=== PATIENT | female | born 1970 | race Caucasian/White ===

== ENCOUNTER 2021-11-14 08:00 | Outpatient (CLI) | payer MEDICARE, MEDICAID | END 2021-11-14 23:59 | LOC: LAB 08:00 | PROVIDERS: ATTEND Physician Assistant Medical | DX: N30.00 Acute cystitis without hematuria (principal) | CPT/HCPCS: 87086; 87181 ==

== ENCOUNTER 2022-03-15 12:55 | Outpatient (CLI) | payer MEDICARE, MEDICAID ==
--- NOTE | 2022-03-15 15:34 | XRAY Report ---
PROCEDURE: Knee 3 View RT INDICATIONS: PAIN IN RIGHT KNEE TECHNIQUE: 3 views of the right knee(s) were acquired. COMPARISON: None. FINDINGS: Bones: No fractures or dislocations. Mild degenerative change in the medial and patellar compartment s. No suspicious bony lesions. Soft tissues: No significant joint effusion. No suspicious soft tissue calcifications. IMPRESSION: Mild right knee DJD. Reviewed by: David Alonso MD on 03/15/2022 3:33 PM PDT Approved by: David Alonso MD on 03/15/2022 3:33 PM PDT Station ID: [id number]
== END 2022-03-15 12:56 | disposition home or self-care (01) ==
LOC: DI.N 12:55
PROVIDERS: ATTEND Physician Assistant
DX: M17.11 Unilateral primary osteoarthritis, right knee (principal)

== ENCOUNTER 2023-01-07 16:22 | Emergency (ER) | payer MEDICARE, MEDICAID ==
[2023-01-07 16:35] VITALS: BP 143/102
[2023-01-07 16:54] LABS: BASOPHILS % (AUTO) 0.4 %; EOSINOPHILS % (AUTO) 0.2 %; HCT - HEMATOCRIT 49.9 % (37.0-47.0); HGB - HEMOGLOBIN 15.5 g/dL (12.0-16.0); LYMPHOCYTES # (AUTO) 1.2 10^3/uL (1.5-3.5); LYMPHOCYTES % (AUTO) 10.5 %; MEAN CORPUSCULAR HGB CONC 31.1 g/dL (32.0-36.0); MEAN CORPUSCULAR VOLUME 96.5 fL (81.0-99.0); MEAN PLATELET VOLUME 9.1 fL (7.9-10.8); MONOCYTES # (AUTO) 0.5 10^3/uL (0.0-1.0); MONOCYTES % (AUTO) 4.5 %; NEUTROPHILS # (AUTO) 9.2 10^3/uL (1.5-6.6); NEUTROPHILS % (AUTO) 83.2 %; PLT - PLATELET COUNT 231 10^3/uL (130-450); RED BLOOD COUNT 5.17 10^6/uL (4.20-5.40); RED CELL DISTRIBUTION WIDTH 14.2 % (12.0-15.0)
[2023-01-07 17:05] LABS: ALBUMIN 4.6 g/dL (3.2-5.5); ALBUMIN/GLOBULIN RATIO 1.5 (1.0-2.2); BILIRUBIN,TOTAL 0.6 mg/dL (0.2-1.0); CALCIUM 9.5 mg/dL (8.5-10.3); CREATININE 1.2 mg/dL (0.4-1.0); POTASSIUM 4.5 mmol/L (3.5-5.0); TOTAL PROTEIN 7.7 g/dL (6.7-8.2)
[2023-01-07 17:08] LABS: BILIRUBIN,URINE NEGATIVE (NEGATIVE); GLUCOSE, URINE (UA) NEGATIVE (NEGATIVE); KETONES,URINE (UA) NEGATIVE (NEGATIVE); LEUKOCYTE ESTERASE, URINE TRACE (NEGATIVE); NITRITE,URINE NEGATIVE (NEGATIVE); OCCULT BLOOD,URINE NEGATIVE (NEGATIVE); PROTEIN,URINE TRACE mg/dL (NEGATIVE); UROBILINOGEN,URINE 0.2 (NORMAL) E.U./dL (NORMAL)
[2023-01-07 17:09] LABS: CLARITY,URINE HAZY (CLEAR)
--- OUTSIDE RECORDS SUMMARY | 2023-01-07 17:11 | EXTERNAL MEDICAL SUMMARY RPT | Continuity of Care Document ---
:1970 Author Organization [facility] Address [address] [place] [address] Phone Care Team Providers Name Role Phone Unavailable Unavailable Unavailable Panda, Skyler Unavailable Unavailable Jack Chávezp,Heating Technician, Byron Unavailable Unavailable Allergies and Intolerances date description facility type (no date) No Known Drug Allergies [facility] ([facility]) Encounters No information. Functional Status No information. Immunizations No information. Medications date description facility 2022-12-23 00:00 buspirone All 2022-12-24 00:00 buspirone All 2022-12-23 00:00 clonidine hcl All 2022-12-24 00:00 clonidine hcl All 2022-12-23 00:00 atenolol All 2022-12-24 00:00 atenolol All 2022-12-23 00:00 nitrofurantoin monohyd/m-cryst All 2022-12-24 00:00 nitrofurantoin monohyd/m-cryst All 2022-12-23 00:00 mycophenolate sodium All 2022-12-24 00:00 mycophenolate sodium All 2022-12-22 00:00 oxycodone-acetaminophen All 2022-12-23 00:00 oxycodone-acetaminophen All 2022-12-24 00:00 oxycodone-acetaminophen All 2022-12-22 00:00 oxycodone All 2022-12-23 00:00 prednisone All 2022-12-24 00:00 prednisone All 2022-12-23 00:00 tacrolimus All 2022-12-24 00:00 tacrolimus All 2022-12-22 00:00 oxycodone-acetaminophen All 2022-12-23 00:00 oxycodone-acetaminophen All 2022-12-24 00:00 oxycodone-acetaminophen All 2022-12-24 00:00 [facility] 2022-12-22 00:00 oxycodone All 2022-12-23 00:00 nitrofurantoin macrocrystal All 2022-12-24 00:00 nitrofurantoin macrocrystal All 2022-12-23 00:00 buprenorphine All 2022-12-24 00:00 buprenorphine All 2022-12-24 00:00 Nitrofurantoin Monohyd/M-Cryst [facility] 2022-12-23 00:00 nitrofurantoin monohyd/m-cryst All 2022-12-24 00:00 nitrofurantoin monohyd/m-cryst All 2022-12-23 00:00 nitrofurantoin macrocrystal All 2022-12-24 00:00 nitrofurantoin macrocrystal All 2022-12-23 00:00 nitrofurantoin macrocrystal All 2022-12-24 00:00 nitrofurantoin macrocrystal All 2022-12-23 00:00 nitrofurantoin monohyd/m-cryst All 2022-12-24 00:00 nitrofurantoin monohyd/m-cryst All 2022-12-23 00:00 prednisone All 2022-12-24 00:00 prednisone All 2022-12-24 00:[address] [facility] 2022-12-23 00:00 amlodipine All 2022-12-24 00:00 amlodipine All 2022-12-24 00:[address] [facility] 2022-12-23 00:00 atenolol All 2022-12-24 00:00 atenolol All 2022-12-24 00:[address] [facility] 2022-12-23 00:00 omeprazole All 2022-12-24 00:00 omeprazole All 2022-12-24 00:[address] [facility] 2022-12-23 00:00 montelukast All 2022-12-24 00:00 montelukast All 2022-12-23 00:00 atenolol All 2022-12-24 00:00 atenolol All 2022-12-23 00:00 prednisone All 2022-12-24 00:00 prednisone All 2022-12-23 00:00 amlodipine All 2022-12-24 00:00 amlodipine All 2022-12-23 00:00 buspirone All 2022-12-24 00:00 buspirone All 2022-12-23 00:00 nitrofurantoin monohyd/m-cryst All 2022-12-24 00:00 nitrofurantoin monohyd/m-cryst All 2022-12-22 00:00 oxycodone All 2022-12-24 00:[address] [facility] 2022-12-23 00:00 citalopram All 2022-12-24 00:00 citalopram All 2022-12-24 00:[address] [facility] 2022-12-23 00:00 gabapentin All 2022-12-24 00:00 gabapentin All 2022-12-24 00:[address] [facility] 2022-12-23 00:00 prednisone All 2022-12-24 00:00 prednisone All 2022-12-24 00:[address] [facility] 2022-12-23 00:00 tacrolimus All 2022-12-24 00:00 tacrolimus All 2022-12-23 00:00 atenolol All 2022-12-24 00:00 atenolol All 2022-12-23 00:00 amlodipine All 2022-12-24 00:00 amlodipine All 2022-12-23 00:00 clonidine hcl All 2022-12-24 00:00 clonidine hcl All 2022-12-23 00:00 buprenorphine All 2022-12-24 00:00 buprenorphine All 2022-12-23 00:00 montelukast All 2022-12-24 00:00 montelukast All 2022-12-23 00:00 gabapentin All 2022-12-24 00:00 gabapentin All 2022-12-23 00:00 clonidine hcl All 2022-12-24 00:00 clonidine hcl All 2022-12-23 00:00 nitrofurantoin macrocrystal All 2022-12-24 00:00 nitrofurantoin macrocrystal All 2022-12-24 00:[address] [facility] 2022-12-23 00:00 mycophenolate sodium All 2022-12-24 00:00 mycophenolate sodium All 2022-12-23 00:00 omeprazole All 2022-12-24 00:00 omeprazole All 2022-12-23 00:00 montelukast All 2022-12-24 00:00 montelukast All 2022-12-23 00:00 citalopram All 2022-12-24 00:00 citalopram All 2022-12-22 00:00 cyclobenzaprine All 2022-12-23 00:00 citalopram All 2022-12-24 00:00 citalopram All 2022-12-23 00:00 buspirone All 2022-12-24 00:00 buspirone All 2022-12-23 00:00 citalopram All 2022-12-24 00:00 citalopram All 2022-12-23 00:00 tacrolimus All 2022-12-24 00:00 tacrolimus All 2022-12-22 00:00 cyclobenzaprine All 2022-12-23 00:00 amlodipine All 2022-12-24 00:00 amlodipine All 2022-12-23 00:00 gabapentin All 2022-12-24 00:00 gabapentin All 2022-12-23 00:00 omeprazole All 2022-12-24 00:00 omeprazole All 2022-12-23 00:00 omeprazole All 2022-12-24 00:00 omeprazole All 2022-12-22 00:00 oxycodone All 2022-12-23 00:00 buprenorphine All 2022-12-24 00:00 buprenorphine All 2022-12-23 00:00 montelukast All 2022-12-24 00:00 montelukast All 2022-12-22 00:00 oxycodone-acetaminophen All 2022-12-23 00:00 oxycodone-acetaminophen All 2022-12-24 00:00 oxycodone-acetaminophen All 2022-12-23 00:00 gabapentin All 2022-12-24 00:00 gabapentin All 2022-12-22 00:00 oxycodone-acetaminophen All 2022-12-23 00:00 oxycodone-acetaminophen All 2022-12-24 00:00 oxycodone-acetaminophen All 2022-12-22 00:00 cyclobenzaprine All 2022-12-24 00:00 [facility] 2022-12-22 00:00 cyclobenzaprine All 2022-12-23 00:00 mycophenolate sodium All 2022-12-24 00:00 mycophenolate sodium All 2022-12-23 00:00 buspirone All 2022-12-24 00:00 buspirone All 2022-12-23 00:00 clonidine hcl All 2022-12-24 00:00 clonidine hcl All 2022-12-24 00:[address] [facility] 2022-12-23 00:00 buprenorphine All 2022-12-24 00:00 buprenorphine All 2022-12-23 00:00 mycophenolate sodium All 2022-12-24 00:00 mycophenolate sodium All 2022-12-23 00:00 tacrolimus All 2022-12-24 00:00 tacrolimus All Problems date description facility 2022-12-22 00:00 Thoracic back pain All 2022-12-22 00:00 Backache, unspecified All 2022-12-22 00:00 Dorsalgia, unspecified All 2022-12-24 00:[address] [facility] Procedures date description facility 2022-12-22 00:00 Visit Code Hold All Results/Labs test date author facility value unit interpret ation Result panel 1 (unknown) (no (unknown) (unknown) (no value) (units (unk nown) date) unknown) (unknown) (no (unknown) (unknown) 0.5 mg PO BID (units ( unknown) date) unknown) (unknown) (no (unknown) (unknown) 12/24/22 12:52 (units (unknown) date) unknown) (unknown) (no (unknown) (unknown) 12/24/22 (units (unkno wn) date) unknown) (unknown) (no (unknown) (unknown) 1 patch topical (units (unknown) date) QWEEK unknown) (unknown) (no (unknown) (unknown) 10 mg PO DAILY (units (unknown) date) unknown) (unknown) (no (unknown) (unknown) 10 mg PO TID PRN (units (unknown) date) (Reason: muscle unknown) spasms) (unknown) (no (unknown) (unknown) 100 mg PO DAILY (units (unknown) date) unknown) (unknown) (no (unknown) (unknown) 11:26 (units (unkno wn) date) unknown) (unknown) (no (unknown) (unknown) [id number] (units (unkno wn) date) unknown) (unknown) (no (unknown) (unknown) 25 mg PO BID (units (u nknown) date) unknown) (unknown) (no (unknown) (unknown) 300 mg PO BID (units ( unknown) date) unknown) (unknown) (no (unknown) (unknown) 40 mg PO DAILY (units (unknown) date) unknown) (unknown) (no (unknown) (unknown) 5 PM (units (unkno wn) date) unknown) (unknown) (no (unknown) (unknown) 5 mg PO DAILY (units ( unknown) date) unknown) (unknown) (no (unknown) (unknown) 5 mg PO Q6H PRN (units (unknown) date) (Reason: Pain unknown) (Scale Score 7-10)) (unknown) (no (unknown) (unknown) 52-year-old female (units (unknown) date) with past medical unknown) history kidney transplant presents to the (unknown) (no (unknown) (unknown) 7-10) (units (unkno wn) date) unknown) (unknown) (no (unknown) (unknown) Abdomen is benign. (units (unknown) date) Patient given unknown) Percocet for pain. Likely discharge home with (unknown) (no (unknown) (unknown) Abdomen is soft, (units (unknown) date) nondistended, unknown) nontender to palpation. There is no CVA (unknown) (no (unknown) (unknown) Age/Sex: 52 / F (units (unknown) date) unknown) (unknown) (no (unknown) (unknown) Allergic/Immunolog (units (unknown) date) ic unknown) (unknown) (no (unknown) (unknown) Allergic/Immunolog (units (unknown) date) ic: Denies unknown) urticaria, Denies throat swelling and Denies (unknown) (no (unknown) (unknown) Allergies (units (unkn own) date) unknown) (unknown) (no (unknown) (unknown) Allergy/AdvReac (units (unknown) date) Type Severity unknown) Reaction Status Date / Time (unknown) (no (unknown) (unknown) Auscultation:?shyla (units (unknown) date) r to auscultation unknown) bilaterally (unknown) (no (unknown) (unknown) Bal,Skyler, MD (units (unknown) date) [Primary Care unknown) Provider] (unknown) (no (unknown) (unknown) Bedside Urine (units ( unknown) date) Bilirubin - unknown) Negative (unknown) (no (unknown) (unknown) Bedside Urine (units ( unknown) date) Glucose Negative unknown) (unknown) (no (unknown) (unknown) Bedside Urine (units ( unknown) date) Ketone - Negative unknown) (unknown) (no (unknown) (unknown) Bedside Urine (units ( unknown) date) Leukocytes - unknown) Negative (unknown) (no (unknown) (unknown) Bedside Urine (units ( unknown) date) Nitrite - Negative unknown) (unknown) (no (unknown) (unknown) Bedside Urine (units ( unknown) date) Occult Blood - unknown) Negative (unknown) (no (unknown) (unknown) Bedside Urine (units ( unknown) date) Protein - Negative unknown) (unknown) (no (unknown) (unknown) Bedside Urine (units ( unknown) date) Urobilinogen - unknown) Negative (unknown) (no (unknown) (unknown) Bedside Urine pH (units (unknown) date) 6.0 unknown) (unknown) (no (unknown) (unknown) Blood Culture Stat (units (unknown) date) unknown) (unknown) (no (unknown) (unknown) Blood Pressure (units (unknown) date) 142/81 H 12/24/22 unknown) 11:26 (unknown) (no (unknown) (unknown) Blood Pressure (units (unknown) date) 142/81 H unknown) (unknown) (no (unknown) (unknown) Cardio (units (unkno wn) date) unknown) (unknown) (no (unknown) (unknown) Cardiovascular (units (unknown) date) unknown) (unknown) (no (unknown) (unknown) Cardiovascular: (units (unknown) date) Denies chest pain, unknown) Denies irregular heart rhythm, Denies (unknown) (no (unknown) (unknown) Chief Complaint: (units (unknown) date) Back Pain/Injury unknown) (unknown) (no (unknown) (unknown) Complete Blood (units (unknown) date) Count AUTO DIFF unknown) Stat (unknown) (no (unknown) (unknown) Comprehensive (units ( unknown) date) Metabolic Panel unknown) Stat (unknown) (no (unknown) (unknown) Const (units (unkno wn) date) unknown) (unknown) (no (unknown) (unknown) Constitutional (units (unknown) date) unknown) (unknown) (no (unknown) (unknown) Constitutional: (units (unknown) date) Denies chills, unknown) Denies fatigue, Denies fever(s), Denies frequent (unknown) (no (unknown) (unknown) Course (units (unkno wn) date) unknown) (unknown) (no (unknown) (unknown) : 1970 (units (unknown) date) Acct:[id number] unknown) (unknown) (no (unknown) (unknown) Date of Service: (units (unknown) date) 12/24/22 unknown) (unknown) (no (unknown) (unknown) Denies frequent (units (unknown) date) falls, Denies loss unknown) of vision, Denies numbness, Denies tingling (unknown) (no (unknown) (unknown) Denies loss of (units (unknown) date) vision unknown) (unknown) (no (unknown) (unknown) Denies numbness (units (unknown) date) and Denies tingling unknown) (unknown) (no (unknown) (unknown) Departure (units (unkn own) date) unknown) (unknown) (no (unknown) (unknown) Discharge Plan (units (unknown) date) unknown) (unknown) (no (unknown) (unknown) Discontinued (units (u nknown) date) Medications unknown) (unknown) (no (unknown) (unknown) ED Orders (units (unkn own) date) unknown) (unknown) (no (unknown) (unknown) ED return (units (unkn own) date) precautions. unknown) (unknown) (no (unknown) (unknown) ED with 1 week of (units (unknown) date) right-sided mid unknown) back/flank pain. Concern for UTI versus pyelo (unknown) (no (unknown) (unknown) ED with 1 week of (units (unknown) date) right-sided mid unknown) back/flank pain. Patient states that the (unknown) (no (unknown) (unknown) ENT (units (unkno wn) date) unknown) (unknown) (no (unknown) (unknown) ER Physician: (units ( unknown) date) Sekou,Hyma P.A-C unknown) (unknown) (no (unknown) (unknown) Ears, Nose, Mouth, (units (unknown) date) and Throat: Denies unknown) change in voice, Denies dizziness, Denies (unknown) (no (unknown) (unknown) Ears:?hearing (units ( unknown) date) grossly normal unknown) bilaterally (unknown) (no (unknown) (unknown) Effort + (units (unkno wn) date) Inspection:?normal unknown) respiratory effort (unknown) (no (unknown) (unknown) Emergency Report (units (unknown) date) unknown) (unknown) (no (unknown) (unknown) Endocrine (units (unkn own) date) unknown) (unknown) (no (unknown) (unknown) Endocrine: Denies (units (unknown) date) fatigue, Denies unknown) flushing and Denies palpitations (unknown) (no (unknown) (unknown) Esterase (units (unkno wn) date) unknown) (unknown) (no (unknown) (unknown) Exam Narrative: (units (unknown) date) unknown) (unknown) (no (unknown) (unknown) Exam (units (unkno wn) date) unknown) (unknown) (no (unknown) (unknown) Eyes (units (unkno wn) date) unknown) (unknown) (no (unknown) (unknown) Eyes: Denies (units (u nknown) date) change in vision, unknown) Denies eye discharge, Denies irritation and (unknown) (no (unknown) (unknown) Face and (units (unkno wn) date) sinus:?normal unknown) facial exam and sinuses nontender (unknown) (no (unknown) (unknown) GI (units (unkno wn) date) unknown) (unknown) (no (unknown) (unknown) Gastrointestinal (units (unknown) date) unknown) (unknown) (no (unknown) (unknown) Gastrointestinal: (units (unknown) date) Denies abdominal unknown) pain, Denies change in bowel habits, Denies (unknown) (no (unknown) (unknown) General (units (unkno wn) date) unknown) (unknown) (no (unknown) (unknown) General:?appearanc (units (unknown) date) e normal, both eyes unknown) and all related structures (unknown) (no (unknown) (unknown) General:?cooperati (units (unknown) date) ve, healthy unknown) appearing and comfortable (unknown) (no (unknown) (unknown) General:?patient (units (unknown) date) alert, patient unknown) awake and patient oriented x3 (unknown) (no (unknown) (unknown) Genitourinary (units ( unknown) date) unknown) (unknown) (no (unknown) (unknown) Genitourinary: (units (unknown) date) Denies hematuria, unknown) Denies flank pain, Denies urinary incontinence (unknown) (no (unknown) (unknown) HENMT (units (unkno wn) date) unknown) (unknown) (no (unknown) (unknown) HPI - Back (units (unk nown) date) Pain/Injury unknown) (unknown) (no (unknown) (unknown) HPI Narrative: (units (unknown) date) unknown) (unknown) (no (unknown) (unknown) Head:?normal to (units (unknown) date) inspection unknown) (unknown) (no (unknown) (unknown) Hematologic/Lympha (units (unknown) date) tic unknown) (unknown) (no (unknown) (unknown) Hematologic/Lympha (units (unknown) date) tic: Denies easy unknown) bruising (unknown) (no (unknown) (unknown) History and (units (un known) date) physical exam more unknown) consistent with a musculoskeletal sprain/strain. (unknown) (no (unknown) (unknown) History of Present (units (unknown) date) Illness unknown) (unknown) (no (unknown) (unknown) History of (units (unk nown) date) frequent urinary unknown) tract infections (unknown) (no (unknown) (unknown) Home Medications (units (unknown) date) unknown) (unknown) (no (unknown) (unknown) Initial Vital (units ( unknown) date) Signs unknown) (unknown) (no (unknown) (unknown) Initial Vital (units ( unknown) date) Signs: unknown) (unknown) (no (unknown) (unknown) Integumentary/Edith (units (unknown) date) sts unknown) (unknown) (no (unknown) (unknown) [facility] (units (unknown) date) [address] [place] [address] unknown) [place] [address] (unknown) (no (unknown) (unknown) Kidney replaced by (units (unknown) date) transplant unknown) (unknown) (no (unknown) (unknown) Lab Data (units (unkno wn) date) unknown) (unknown) (no (unknown) (unknown) Label Comments: (units (unknown) date) unknown) (unknown) (no (unknown) (unknown) Labs: (units (unkno wn) date) unknown) (unknown) (no (unknown) (unknown) Lactate (Lactic (units (unknown) date) Acid) Stat unknown) (unknown) (no (unknown) (unknown) Lipase Stat (units (un known) date) unknown) (unknown) (no (unknown) (unknown) MDM - Back (units (unk nown) date) Pain/Injury unknown) (unknown) (no (unknown) (unknown) MDM Narrative (units ( unknown) date) unknown) (unknown) (no (unknown) (unknown) Medical History (units (unknown) date) (Reviewed 12/24/22 unknown) @ 14:06 by Nixon Sapp PA-C) (unknown) (no (unknown) (unknown) Medical decision (units (unknown) date) making narrative: unknown) (unknown) (no (unknown) (unknown) Medication (units (unk nown) date) Instructions unknown) Recorded Confirmed (unknown) (no (unknown) (unknown) Mouth:?oral (units (un known) date) mucosae normal unknown) (unknown) (no (unknown) (unknown) Musculoskeletal (units (unknown) date) unknown) (unknown) (no (unknown) (unknown) Musculoskeletal: (units (unknown) date) Reports back pain, unknown) Denies muscle weakness, Denies neck pain, (unknown) (no (unknown) (unknown) Narrative (units (unkn own) date) unknown) (unknown) (no (unknown) (unknown) Neck (units (unkno wn) date) unknown) (unknown) (no (unknown) (unknown) Neck:?normal (units (u nknown) date) visual inspection unknown) and no lymphadenopathy noted (unknown) (no (unknown) (unknown) Neuro (units (unkno wn) date) unknown) (unknown) (no (unknown) (unknown) Neurologic (units (unk nown) date) unknown) (unknown) (no (unknown) (unknown) Neurologic: Denies (units (unknown) date) behavioral changes, unknown) Denies confusion, Denies dizziness, (unknown) (no (unknown) (unknown) No Action (units (unkn own) date) unknown) (unknown) (no (unknown) (unknown) No Known Drug (units ( unknown) date) Allergies Allergy unknown) Verified 12/24/22 11:26 (unknown) (no (unknown) (unknown) No midline (units (unk nown) date) tenderness to unknown) palpation. No paraspinal tenderness to palpation. (unknown) (no (unknown) (unknown) Nose:?external (units (unknown) date) nose normal unknown) (unknown) (no (unknown) (unknown) Ondansetron HCl (units (unknown) date) (Ondansetron 4 Mg/2 unknown) Ml Inj) 4 mg IV NOW PRN (unknown) (no (unknown) (unknown) Ordered: (units (unkno wn) date) unknown) (unknown) (no (unknown) (unknown) Orders (units (unkno wn) date) unknown) (unknown) (no (unknown) (unknown) Oxycodone/Acetamin (units (unknown) date) ophen unknown) (Oxycodone/Acetamin ophen 5/325 Tablet) 1 tab PO NOW ONE (unknown) (no (unknown) (unknown) Oxygen Delivery (units (unknown) date) Method 12/24/22 unknown) 11:26 (unknown) (no (unknown) (unknown) Oxygen Delivery (units (unknown) date) Method Room Air unknown) (unknown) (no (unknown) (unknown) PRN Reason: Nausea (units (unknown) date) And Vomiting unknown) (unknown) (no (unknown) (unknown) Partial (units (unkno wn) date) Thromboplastin Time unknown) Stat (unknown) (no (unknown) (unknown) Patient History (units (unknown) date) unknown) (unknown) (no (unknown) (unknown) Patient states (units (unknown) date) that the pain is unknown) aggravated with movement, alleviated when she (unknown) (no (unknown) (unknown) Patient: (units (unkno wn) date) Yudi Arteaga MR#: unknown) M000 (unknown) (no (unknown) (unknown) Prescriptions: (units (unknown) date) unknown) (unknown) (no (unknown) (unknown) Procalcitonin Stat (units (unknown) date) unknown) (unknown) (no (unknown) (unknown) Prothrombin Time (units (unknown) date) INR Stat unknown) (unknown) (no (unknown) (unknown) Psychiatric (units (un known) date) unknown) (unknown) (no (unknown) (unknown) Psychiatric: Denies (units (unknown) date) anxiety, Denies unknown) behavioral changes, Denies confusion, Denies (unknown) (no (unknown) (unknown) Pulse Oximetry 97 (units (unknown) date) 12/24/22 11:26 unknown) (unknown) (no (unknown) (unknown) Pulse Oximetry 97 (units (unknown) date) unknown) (unknown) (no (unknown) (unknown) Pulse Rate 80 (units ( unknown) date) 12/24/22 11:26 unknown) (unknown) (no (unknown) (unknown) Pulse Rate 80 (units ( unknown) date) unknown) (unknown) (no (unknown) (unknown) REFILL (units (unkno wn) date) unknown) (unknown) (no (unknown) (unknown) ROS Unobtainable: (units (unknown) date) All systems unknown) reviewed + are unremarkable except as noted in HPI (unknown) (no (unknown) (unknown) Rate:?regular rate (units (unknown) date) unknown) (unknown) (no (unknown) (unknown) Referrals: (units (unk nown) date) unknown) (unknown) (no (unknown) (unknown) Related Data (units (u nknown) date) unknown) (unknown) (no (unknown) (unknown) Resp (units (unkno wn) date) unknown) (unknown) (no (unknown) (unknown) Respiratory Rate (units (unknown) date) 18 12/24/22 11:26 unknown) (unknown) (no (unknown) (unknown) Respiratory Rate (units (unknown) date) 18 unknown) (unknown) (no (unknown) (unknown) Respiratory (units (un known) date) unknown) (unknown) (no (unknown) (unknown) Respiratory: Denies (units (unknown) date) cough, Denies unknown) dyspnea, Denies dyspnea on exertion and Denies (unknown) (no (unknown) (unknown) Review of Systems (units (unknown) date) unknown) (unknown) (no (unknown) (unknown) Rhythm:?regular (units (unknown) date) rhythm unknown) (unknown) (no (unknown) (unknown) Rx Instructions: (units (unknown) date) unknown) (unknown) (no (unknown) (unknown) See Rx (units (unkno wn) date) Instructions .ROUTE unknown) .COMPLEX (unknown) (no (unknown) (unknown) Signed By: (units (unk nown) date) unknown) (unknown) (no (unknown) (unknown) Skin/Breast: (units (u nknown) date) Denies pruritus, unknown) Denies erythema, Denies rash and Denies wounds (unknown) (no (unknown) (unknown) Smoking Status: (units (unknown) date) Current every day unknown) smoker (unknown) (no (unknown) (unknown) Social History (units (unknown) date) (Reviewed 12/24/22 unknown) @ 14:06 by Nixon Sapp PA-C) (unknown) (no (unknown) (unknown) Sodium Chloride (units (unknown) date) (Normal Saline unknown) 0.9%) 1,000 mls @ 1,000 mls/hr IV BOLUS ONE (unknown) (no (unknown) (unknown) Source: patient (units (unknown) date) unknown) (unknown) (no (unknown) (unknown) Stated Complaint: (units (unknown) date) back pain T-7 unknown) (unknown) (no (unknown) (unknown) Stop: 12/24/22 (units (unknown) date) 13:51 unknown) (unknown) (no (unknown) (unknown) Stop: 12/24/22 (units (unknown) date) 14:00 unknown) (unknown) (no (unknown) (unknown) Substance Use (units ( unknown) date) Type: does not use unknown) (unknown) (no (unknown) (unknown) Surgical History (units (unknown) date) (Reviewed 12/24/22 unknown) @ 14:06 by Nioxn Sapp PA-C) (unknown) (no (unknown) (unknown) TAKE ONE TABLET BY (units (unknown) date) MOUTH DAILY AT 9 AM unknown) PATIENT NEEDS APPOINTMENT BEFORE NEXT (unknown) (no (unknown) (unknown) TAKE TWO TABLETS (units (unknown) date) BY MOUTH DAILY AT 9 unknown) AM and TAKE ONE TABLET BY MOUTH DAILY AT (unknown) (no (unknown) (unknown) Take 1 tablet by (units (unknown) date) mouth three times a unknown) day as needed for muscle spasm (unknown) (no (unknown) (unknown) Temperature 98.5 F (units (unknown) date) 12/24/22 11:26 unknown) (unknown) (no (unknown) (unknown) Temperature 98.5 F (units (unknown) date) unknown) (unknown) (no (unknown) (unknown) Throat:?posterior (units (unknown) date) oropharynx normal unknown) (unknown) (no (unknown) (unknown) Time Seen by (units (u nknown) date) Provider: 12/24/22 unknown) 13:33 (unknown) (no (unknown) (unknown) Urine Dip (units (unkn own) date) unknown) (unknown) (no (unknown) (unknown) Urine Specific (units (unknown) date) [place] 1.015 unknown) (unknown) (no (unknown) (unknown) Vital Signs - 8 hr (units (unknown) date) unknown) (unknown) (no (unknown) (unknown) Vital Signs (units (un known) date) unknown) (unknown) (no (unknown) (unknown) Vital signs: (units (u nknown) date) unknown) (unknown) (no (unknown) (unknown) ago, was given (units (unknown) date) oxycodone 5 mg unknown) which her pharmacist refused to fill due to her (unknown) (no (unknown) (unknown) alcohol intake (units (unknown) date) frequency: unknown) holidays/special occasions only (unknown) (no (unknown) (unknown) amlodipine 5 mg (units (unknown) date) tablet 5 mg PO unknown) DAILY 12/24/22 12/24/22 (unknown) (no (unknown) (unknown) amlodipine 5 mg (units (unknown) date) tablet unknown) (unknown) (no (unknown) (unknown) and Denies (units (unk nown) date) orthopnea unknown) (unknown) (no (unknown) (unknown) and Denies urinary (units (unknown) date) urgency unknown) (unknown) (no (unknown) (unknown) and Denies (units (unk nown) date) weakness unknown) (unknown) (no (unknown) (unknown) and below (units (unkn own) date) unknown) (unknown) (no (unknown) (unknown) apply one patch to (units (unknown) date) clean dry skin unknown) every 7 days for 28 days (unknown) (no (unknown) (unknown) atenolol 25 mg (units (unknown) date) tablet 25 mg PO BID unknown) 12/24/22 12/24/22 (unknown) (no (unknown) (unknown) atenolol 25 mg (units (unknown) date) tablet unknown) (unknown) (no (unknown) (unknown) buprenorphine 20 (units (unknown) date) mcg/hour patch unknown) weekly (unknown) (no (unknown) (unknown) buprenorphine 20 (units (unknown) date) mcg/hour weekly 1 unknown) patch topical QWEEK 12/24/22 12/24/22 (unknown) (no (unknown) (unknown) capsule (units (unkno wn) date) unknown) (unknown) (no (unknown) (unknown) chills, chest (units ( unknown) date) pain, shortness of unknown) breath, nausea, vomiting, abdominal pain, (unknown) (no (unknown) (unknown) citalopram 40 mg (units (unknown) date) tablet 40 mg PO unknown) DAILY 12/24/22 12/24/22 (unknown) (no (unknown) (unknown) citalopram 40 mg (units (unknown) date) tablet unknown) (unknown) (no (unknown) (unknown) concerned about (units (unknown) date) this pain being unknown) related to her kidney since her kidney is now in (unknown) (no (unknown) (unknown) cyclobenzaprine 10 (units (unknown) date) mg tablet 10 mg PO unknown) TID PRN muscle spasms 12/24/22 12/24/22 (unknown) (no (unknown) (unknown) cyclobenzaprine 10 (units (unknown) date) mg tablet unknown) (unknown) (no (unknown) (unknown) depression, Denies (units (unknown) date) homicidal ideation unknown) and Denies suicidal ideation (unknown) (no (unknown) (unknown) diarrhea, Denies (units (unknown) date) nausea and Denies unknown) vomiting (unknown) (no (unknown) (unknown) dysuria, (units (unkno wn) date) lightheadedness, unknown) dizziness, syncope. Patient states that she is not (unknown) (no (unknown) (unknown) experiencing some (units (unknown) date) right-sided unknown) flank/mid back pain 1 week ago, denies trauma. (unknown) (no (unknown) (unknown) falls, Denies (units ( unknown) date) lethargy and Denies unknown) weakness (unknown) (no (unknown) (unknown) finds a good (units (u nknown) date) position to rest unknown) in. Patient was seen in a walk-in clinic 2 days (unknown) (no (unknown) (unknown) front in the (units (u nknown) date) abdomen. 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 (unknown) (no (unknown) (unknown) immediate-release (units (unknown) date) unknown) (unknown) (no (unknown) (unknown) kidney transplant (units (unknown) date) was in 2018, when unknown) she had her bilateral kidneys removed, a new (unknown) (no (unknown) (unknown) kidney (units (unkno wn) date) transplanted into unknown) her right abdomen. Patient states that she started (unknown) (no (unknown) (unknown) lightheadedness, (units (unknown) date) Denies unknown) palpitations, Denies dyspnea, Denies dyspnea on exertion (unknown) (no (unknown) (unknown) monohydrate/macroc (units (unknown) date) rystals 100 mg unknown) (unknown) (no (unknown) (unknown) montelukast 10 mg (units (unknown) date) tablet 10 mg PO unknown) DAILY 12/24/22 12/24/22 (unknown) (no (unknown) (unknown) montelukast 10 mg (units (unknown) date) tablet unknown) (unknown) (no (unknown) (unknown) mycophenolate (units ( unknown) date) sodium 180 mg See unknown) Rx Instructions .Route .COMPLEX 12/24/22 (unknown) (no (unknown) (unknown) mycophenolate (units ( unknown) date) sodium 180 mg unknown) tablet,delayed release (DR/EC) (unknown) (no (unknown) (unknown) neck pain, Denies (units (unknown) date) sore throat and unknown) Denies throat swelling (unknown) (no (unknown) (unknown) nitrofurantoin 100 (units (unknown) date) mg PO DAILY unknown) 12/24/22 12/24/22 (unknown) (no (unknown) (unknown) nitrofurantoin (units (unknown) date) monohyd/m-cryst 100 unknown) mg capsule (unknown) (no (unknown) (unknown) omeprazole 20 mg (units (unknown) date) capsule,delayed 40 unknown) mg PO DAILY 12/24/22 12/24/22 (unknown) (no (unknown) (unknown) omeprazole 20 mg (units (unknown) date) capsule,delayed unknown) release(DR/EC) (unknown) (no (unknown) (unknown) oxycodone 5 mg (units (unknown) date) tablet 5 mg PO Q6H unknown) PRN Pain (Scale Score 12/24/22 12/24/22 (unknown) (no (unknown) (unknown) oxycodone 5 mg (units (unknown) date) tablet unknown) (unknown) (no (unknown) (unknown) pain contract that (units (unknown) date) she has for her unknown) chronic back pain. Patient denies fever, (unknown) (no (unknown) (unknown) prednisone 5 mg (units (unknown) date) tablet 5 mg PO unknown) DAILY 12/24/22 12/24/22 (unknown) (no (unknown) (unknown) prednisone 5 mg (units (unknown) date) tablet unknown) (unknown) (no (unknown) (unknown) release (units (unkno wn) date) unknown) (unknown) (no (unknown) (unknown) tablet,delayed (units (unknown) date) release unknown) (unknown) (no (unknown) (unknown) tacrolimus 0.5 mg (units (unknown) date) capsule unknown) (unknown) (no (unknown) (unknown) tacrolimus 0.5 mg (units (unknown) date) capsule, 0.5 mg PO unknown) BID 12/24/22 12/24/22 (unknown) (no (unknown) (unknown) tenderness. (units (un known) date) unknown) (unknown) (no (unknown) (unknown) transdermal patch (units (unknown) date) unknown) (unknown) (no (unknown) (unknown) versus (units (unkno wn) date) musculoskeletal unknown) sprain/strain versus other. UA negative for UTI. (unknown) (no (unknown) (unknown) wheezing (units (unkno wn) date) unknown) Result panel 2 (unknown) (no (unknown) (unknown) (no value) (units (unk nown) date) unknown) (unknown) (no (unknown) (unknown) <Electronically (units (unknown) date) signed by Nixon unknown) P.A-C Sekou> (unknown) (no (unknown) (unknown) 0.5 mg PO BID (units ( unknown) date) unknown) (unknown) (no (unknown) (unknown) 12/24/221942 (units ( unknown) date) unknown) (unknown) (no (unknown) (unknown) 12/24/22 (units (unkno wn) date) unknown) (unknown) (no (unknown) (unknown) 1 patch topical (units (unknown) date) QWEEK unknown) (unknown) (no (unknown) (unknown) 10 mg PO DAILY (units (unknown) date) unknown) (unknown) (no (unknown) (unknown) 10 mg PO TID PRN (units (unknown) date) (Reason: muscle unknown) spasms) (unknown) (no (unknown) (unknown) 100 mg PO DAILY (units (unknown) date) unknown) (unknown) (no (unknown) (unknown) 16:54 (units (unkno wn) date) unknown) (unknown) (no (unknown) (unknown) [id number] (units (unkno wn) date) unknown) (unknown) (no (unknown) (unknown) 25 mg PO BID (units (u nknown) date) unknown) (unknown) (no (unknown) (unknown) 300 mg PO BID (units ( unknown) date) unknown) (unknown) (no (unknown) (unknown) 40 mg PO DAILY (units (unknown) date) unknown) (unknown) (no (unknown) (unknown) 5 PM (units (unkno wn) date) unknown) (unknown) (no (unknown) (unknown) 5 mg PO DAILY (units ( unknown) date) unknown) (unknown) (no (unknown) (unknown) 5 mg PO Q6H PRN (units (unknown) date) (Reason: Pain unknown) (Scale Score 7-10)) (unknown) (no (unknown) (unknown) 52-year-old female (units (unknown) date) with past medical unknown) history kidney transplant presents to the (unknown) (no (unknown) (unknown) 7-10) (units (unkno wn) date) unknown) (unknown) (no (unknown) (unknown) Abdomen is benign. (units (unknown) date) Patient given unknown) Percocet for pain. Likely discharge home with (unknown) (no (unknown) (unknown) Abdomen is soft, (units (unknown) date) nondistended, unknown) nontender to palpation. There is no CVA (unknown) (no (unknown) (unknown) Activity (units (unkno wn) date) Restrictions/Additi unknown) onal Instructions: (unknown) (no (unknown) (unknown) Age/Sex: 52 / F (units (unknown) date) unknown) (unknown) (no (unknown) (unknown) Allergic/Immunolog (units (unknown) date) ic unknown) (unknown) (no (unknown) (unknown) Allergic/Immunolog (units (unknown) date) ic: Denies unknown) urticaria, Denies throat swelling and Denies (unknown) (no (unknown) (unknown) Allergies (units (unkn own) date) unknown) (unknown) (no (unknown) (unknown) Allergy/AdvReac (units (unknown) date) Type Severity unknown) Reaction Status Date / Time (unknown) (no (unknown) (unknown) Auscultation:?shyla (units (unknown) date) r to auscultation unknown) bilaterally (unknown) (no (unknown) (unknown) Back pain (units (unkn own) date) unknown) (unknown) (no (unknown) (unknown) Skyler Mosqueda MD (units (unknown) date) [Primary Care unknown) Provider] (unknown) (no (unknown) (unknown) Bedside Urine (units ( unknown) date) Bilirubin - unknown) Negative (unknown) (no (unknown) (unknown) Bedside Urine (units ( unknown) date) Glucose Negative unknown) (unknown) (no (unknown) (unknown) Bedside Urine (units ( unknown) date) Ketone - Negative unknown) (unknown) (no (unknown) (unknown) Bedside Urine (units ( unknown) date) Leukocytes - unknown) Negative (unknown) (no (unknown) (unknown) Bedside Urine (units ( unknown) date) Nitrite - Negative unknown) (unknown) (no (unknown) (unknown) Bedside Urine (units ( unknown) date) Occult Blood - unknown) Negative (unknown) (no (unknown) (unknown) Bedside Urine (units ( unknown) date) Protein - Negative unknown) (unknown) (no (unknown) (unknown) Bedside Urine (units ( unknown) date) Urobilinogen - unknown) Negative (unknown) (no (unknown) (unknown) Bedside Urine pH (units (unknown) date) 6.0 unknown) (unknown) (no (unknown) (unknown) Blood Pressure (units (unknown) date) 125/69 unknown) (unknown) (no (unknown) (unknown) Blood Pressure (units (unknown) date) 142/81 H 12/24/22 unknown) 11:26 (unknown) (no (unknown) (unknown) CT ultrasound (units ( unknown) date) shows right-sided unknown) complex ovarian cyst, likely hemorrhagic. CT (unknown) (no (unknown) (unknown) Cardio (units (unkno wn) date) unknown) (unknown) (no (unknown) (unknown) Cardiovascular (units (unknown) date) unknown) (unknown) (no (unknown) (unknown) Cardiovascular: (units (unknown) date) Denies chest pain, unknown) Denies irregular heart rhythm, Denies (unknown) (no (unknown) (unknown) Chief Complaint: (units (unknown) date) Back Pain/Injury unknown) (unknown) (no (unknown) (unknown) Clinical (units (unkno wn) date) Impression: unknown) (unknown) (no (unknown) (unknown) Const (units (unkno wn) date) unknown) (unknown) (no (unknown) (unknown) Constitutional (units (unknown) date) unknown) (unknown) (no (unknown) (unknown) Constitutional: (units (unknown) date) Denies chills, unknown) Denies fatigue, Denies fever(s), Denies frequent (unknown) (no (unknown) (unknown) Course (units (unkno wn) date) unknown) (unknown) (no (unknown) (unknown) : 1970 (units (unknown) date) Acct:[id number] unknown) (unknown) (no (unknown) (unknown) Date of Service: (units (unknown) date) 12/24/22 unknown) (unknown) (no (unknown) (unknown) Denies frequent (units (unknown) date) falls, Denies loss unknown) of vision, Denies numbness, Denies tingling (unknown) (no (unknown) (unknown) Denies loss of (units (unknown) date) vision unknown) (unknown) (no (unknown) (unknown) Denies numbness (units (unknown) date) and Denies tingling unknown) (unknown) (no (unknown) (unknown) Departure (units (unkn own) date) unknown) (unknown) (no (unknown) (unknown) Discharge Plan (units (unknown) date) unknown) (unknown) (no (unknown) (unknown) Discontinued (units (u nknown) date) Medications unknown) (unknown) (no (unknown) (unknown) Documented By: CTS (units (unknown) date) unknown) (unknown) (no (unknown) (unknown) Documented By: KEB (units (unknown) date) unknown) (unknown) (no (unknown) (unknown) Documented By: KLS (units (unknown) date) unknown) (unknown) (no (unknown) (unknown) ED return (units (unkn own) date) precautions. unknown) (unknown) (no (unknown) (unknown) ED with 1 week of (units (unknown) date) right-sided mid unknown) back/flank pain. Concern for UTI versus pyelo (unknown) (no (unknown) (unknown) ED with 1 week of (units (unknown) date) right-sided mid unknown) back/flank pain. Patient states that the (unknown) (no (unknown) (unknown) ENT (units (unkno wn) date) unknown) (unknown) (no (unknown) (unknown) ER Physician: (units ( unknown) date) Sekou,Hyma P.A-C unknown) (unknown) (no (unknown) (unknown) Ears, Nose, Mouth, (units (unknown) date) and Throat: Denies unknown) change in voice, Denies dizziness, Denies (unknown) (no (unknown) (unknown) Ears:?hearing (units ( unknown) date) grossly normal unknown) bilaterally (unknown) (no (unknown) (unknown) Effort + (units (unkno wn) date) Inspection:?normal unknown) respiratory effort (unknown) (no (unknown) (unknown) Emergency Report (units (unknown) date) unknown) (unknown) (no (unknown) (unknown) Endocrine (units (unkn own) date) unknown) (unknown) (no (unknown) (unknown) Endocrine: Denies (units (unknown) date) fatigue, Denies unknown) flushing and Denies palpitations (unknown) (no (unknown) (unknown) Esterase (units (unkno wn) date) unknown) (unknown) (no (unknown) (unknown) Exam Narrative: (units (unknown) date) unknown) (unknown) (no (unknown) (unknown) Exam (units (unkno wn) date) unknown) (unknown) (no (unknown) (unknown) Eyes (units (unkno wn) date) unknown) (unknown) (no (unknown) (unknown) Eyes: Denies (units (u nknown) date) change in vision, unknown) Denies eye discharge, Denies irritation and (unknown) (no (unknown) (unknown) Face and (units (unkno wn) date) sinus:?normal unknown) facial exam and sinuses nontender (unknown) (no (unknown) (unknown) GI (units (unkno wn) date) unknown) (unknown) (no (unknown) (unknown) Gastrointestinal (units (unknown) date) unknown) (unknown) (no (unknown) (unknown) Gastrointestinal: (units (unknown) date) Denies abdominal unknown) pain, Denies change in bowel habits, Denies (unknown) (no (unknown) (unknown) General (units (unkno wn) date) unknown) (unknown) (no (unknown) (unknown) General:?appearanc (units (unknown) date) e normal, both eyes unknown) and all related structures (unknown) (no (unknown) (unknown) General:?cooperati (units (unknown) date) ve, healthy unknown) appearing and comfortable (unknown) (no (unknown) (unknown) General:?patient (units (unknown) date) alert, patient unknown) awake and patient oriented x3 (unknown) (no (unknown) (unknown) Genitourinary (units ( unknown) date) unknown) (unknown) (no (unknown) (unknown) Genitourinary: (units (unknown) date) Denies hematuria, unknown) Denies flank pain, Denies urinary incontinence (unknown) (no (unknown) (unknown) HENMT (units (unkno wn) date) unknown) (unknown) (no (unknown) (unknown) HPI - Back (units (unk nown) date) Pain/Injury unknown) (unknown) (no (unknown) (unknown) HPI Narrative: (units (unknown) date) unknown) (unknown) (no (unknown) (unknown) Head:?normal to (units (unknown) date) inspection unknown) (unknown) (no (unknown) (unknown) Hematologic/Lympha (units (unknown) date) tic unknown) (unknown) (no (unknown) (unknown) Hematologic/Lympha (units (unknown) date) tic: Denies easy unknown) bruising (unknown) (no (unknown) (unknown) History and (units (un known) date) physical exam more unknown) consistent with a musculoskeletal sprain/strain. (unknown) (no (unknown) (unknown) History of Present (units (unknown) date) Illness unknown) (unknown) (no (unknown) (unknown) History of (units (unk nown) date) frequent urinary unknown) tract infections (unknown) (no (unknown) (unknown) Home Medications (units (unknown) date) unknown) (unknown) (no (unknown) (unknown) Initial Vital (units ( unknown) date) Signs unknown) (unknown) (no (unknown) (unknown) Initial Vital (units ( unknown) date) Signs: unknown) (unknown) (no (unknown) (unknown) Instructions: DI (units (unknown) date) for Muscle Strain unknown) (unknown) (no (unknown) (unknown) Integumentary/[place] (units (unknown) date) sts unknown) (unknown) (no (unknown) (unknown) [facility] (units (unknown) date) [address] unknown) [place] [address] (unknown) (no (unknown) (unknown) Kidney replaced by (units (unknown) date) transplant unknown) (unknown) (no (unknown) (unknown) Lab Data (units (unkno wn) date) unknown) (unknown) (no (unknown) (unknown) Label Comments: (units (unknown) date) unknown) (unknown) (no (unknown) (unknown) Labs: (units (unkno wn) date) unknown) (unknown) (no (unknown) (unknown) Last Admin: (units (un known) date) 12/24/22 14:01 unknown) Dose: Not Given (unknown) (no (unknown) (unknown) Last Admin: (units (un known) date) 12/24/22 14:06 unknown) Dose: 1 tab (unknown) (no (unknown) (unknown) Last Admin: (units (un known) date) 12/24/22 16:42 unknown) Dose: Not Given (unknown) (no (unknown) (unknown) Last Admin: (units (un known) date) 12/24/22 16:54 unknown) Dose: Not Given (unknown) (no (unknown) (unknown) MDM - Back (units (unk nown) date) Pain/Injury unknown) (unknown) (no (unknown) (unknown) MDM Narrative (units ( unknown) date) unknown) (unknown) (no (unknown) (unknown) Medical History (units (unknown) date) (Reviewed 12/24/22 unknown) @ 14:06 by Nixon Sapp PA-C) (unknown) (no (unknown) (unknown) Medical decision (units (unknown) date) making narrative: unknown) (unknown) (no (unknown) (unknown) Medical records (units (unknown) date) reviewed: Yes unknown) (unknown) (no (unknown) (unknown) Medication (units (unk nown) date) Instructions unknown) Recorded Confirmed (unknown) (no (unknown) (unknown) Morphine Sulfate (units (unknown) date) (Morphine 4 Mg/Ml unknown) Inj) 4 mg IM NOW ONE (unknown) (no (unknown) (unknown) Morphine Sulfate (units (unknown) date) (Morphine 4 Mg/Ml unknown) Inj) 4 mg IV NOW ONE (unknown) (no (unknown) (unknown) Mouth:?oral (units (un known) date) mucosae normal unknown) (unknown) (no (unknown) (unknown) Musculoskeletal (units (unknown) date) unknown) (unknown) (no (unknown) (unknown) Musculoskeletal: (units (unknown) date) Reports back pain, unknown) Denies muscle weakness, Denies neck pain, (unknown) (no (unknown) (unknown) Narrative (units (unkn own) date) unknown) (unknown) (no (unknown) (unknown) Neck (units (unkno wn) date) unknown) (unknown) (no (unknown) (unknown) Neck:?normal (units (u nknown) date) visual inspection unknown) and no lymphadenopathy noted (unknown) (no (unknown) (unknown) Neuro (units (unkno wn) date) unknown) (unknown) (no (unknown) (unknown) Neurologic (units (unk nown) date) unknown) (unknown) (no (unknown) (unknown) Neurologic: Denies (units (unknown) date) behavioral changes, unknown) Denies confusion, Denies dizziness, (unknown) (no (unknown) (unknown) No Action (units (unkn own) date) unknown) (unknown) (no (unknown) (unknown) No Known Drug (units ( unknown) date) Allergies Allergy unknown) Verified 12/24/22 11:26 (unknown) (no (unknown) (unknown) No midline (units (unk nown) date) tenderness to unknown) palpation. No paraspinal tenderness to palpation. (unknown) (no (unknown) (unknown) Nose:?external (units (unknown) date) nose normal unknown) (unknown) (no (unknown) (unknown) Ondansetron HCl (units (unknown) date) (Ondansetron 4 Mg/2 unknown) Ml Inj) 4 mg IV NOW PRN (unknown) (no (unknown) (unknown) Ordered: (units (unkno wn) date) unknown) (unknown) (no (unknown) (unknown) Orders (units (unkno wn) date) unknown) (unknown) (no (unknown) (unknown) Oxycodone/Acetamin (units (unknown) date) ophen unknown) (Oxycodone/Acetamin ophen 5/325 Tablet) 1 tab PO NOW ONE (unknown) (no (unknown) (unknown) Oxygen Delivery (units (unknown) date) Method 12/24/22 unknown) 11:26 (unknown) (no (unknown) (unknown) Oxygen Delivery (units (unknown) date) Method Room Air unknown) (unknown) (no (unknown) (unknown) PRN Reason: Nausea (units (unknown) date) And Vomiting unknown) (unknown) (no (unknown) (unknown) Patient (units (unkno wn) date) Disposition: Home unknown) (unknown) (no (unknown) (unknown) Patient History (units (unknown) date) unknown) (unknown) (no (unknown) (unknown) Patient states (units (unknown) date) that the pain is unknown) aggravated with movement, alleviated when she (unknown) (no (unknown) (unknown) Patient: (units (unkno wn) date) LarydaneYudi M MR#: unknown) [id number] (unknown) (no (unknown) (unknown) Please follow-up (units (unknown) date) with your pain unknown) management doctor for further management of the (unknown) (no (unknown) (unknown) Prescriptions: (units (unknown) date) unknown) (unknown) (no (unknown) (unknown) Psychiatric (units (un known) date) unknown) (unknown) (no (unknown) (unknown) Psychiatric: Denies (units (unknown) date) anxiety, Denies unknown) behavioral changes, Denies confusion, Denies (unknown) (no (unknown) (unknown) Pulse Oximetry 97 (units (unknown) date) 12/24/22 11:26 unknown) (unknown) (no (unknown) (unknown) Pulse Oximetry 99 (units (unknown) date) unknown) (unknown) (no (unknown) (unknown) Pulse Rate 62 (units ( unknown) date) unknown) (unknown) (no (unknown) (unknown) Pulse Rate 80 (units ( unknown) date) 12/24/22 11:26 unknown) (unknown) (no (unknown) (unknown) REFILL (units (unkno wn) date) unknown) (unknown) (no (unknown) (unknown) ROS Unobtainable: (units (unknown) date) All systems unknown) reviewed + are unremarkable except as noted in HPI (unknown) (no (unknown) (unknown) Rate:?regular rate (units (unknown) date) unknown) (unknown) (no (unknown) (unknown) Referrals: (units (unk nown) date) unknown) (unknown) (no (unknown) (unknown) Related Data (units (u nknown) date) unknown) (unknown) (no (unknown) (unknown) Resp (units (unkno wn) date) unknown) (unknown) (no (unknown) (unknown) Respiratory Rate (units (unknown) date) 16 unknown) (unknown) (no (unknown) (unknown) Respiratory Rate (units (unknown) date) 18 12/24/22 11:26 unknown) (unknown) (no (unknown) (unknown) Respiratory (units (un known) date) unknown) (unknown) (no (unknown) (unknown) Respiratory: Denies (units (unknown) date) cough, Denies unknown) dyspnea, Denies dyspnea on exertion and Denies (unknown) (no (unknown) (unknown) Review of Systems (units (unknown) date) unknown) (unknown) (no (unknown) (unknown) Rhythm:?regular (units (unknown) date) rhythm unknown) (unknown) (no (unknown) (unknown) Rx Instructions: (units (unknown) date) unknown) (unknown) (no (unknown) (unknown) See Rx (units (unkno wn) date) Instructions .ROUTE unknown) .COMPLEX (unknown) (no (unknown) (unknown) Signed By: (units (unk nown) date) unknown) (unknown) (no (unknown) (unknown) Skin/Breast: (units (u nknown) date) Denies pruritus, unknown) Denies erythema, Denies rash and Denies wounds (unknown) (no (unknown) (unknown) Smoking Status: (units (unknown) date) Current every day unknown) smoker (unknown) (no (unknown) (unknown) Social History (units (unknown) date) (Reviewed 12/24/22 unknown) @ 14:06 by Nixon Sapp PA-C) (unknown) (no (unknown) (unknown) Sodium Chloride (units (unknown) date) (Normal Saline unknown) 0.9%) 1,000 mls @ 1,000 mls/hr IV BOLUS ONE (unknown) (no (unknown) (unknown) Source: patient (units (unknown) date) unknown) (unknown) (no (unknown) (unknown) Stand Alone Forms: (units (unknown) date) Patient Portal/API unknown) (unknown) (no (unknown) (unknown) Stated Complaint: (units (unknown) date) back pain T-7 unknown) (unknown) (no (unknown) (unknown) Stop: 12/24/22 (units (unknown) date) 13:51 unknown) (unknown) (no (unknown) (unknown) Stop: 12/24/22 (units (unknown) date) 14:00 unknown) (unknown) (no (unknown) (unknown) Stop: 12/24/22 (units (unknown) date) 16:09 unknown) (unknown) (no (unknown) (unknown) Stop: 12/24/22 (units (unknown) date) 16:33 unknown) (unknown) (no (unknown) (unknown) Substance Use (units ( unknown) date) Type: does not use unknown) (unknown) (no (unknown) (unknown) Surgical History (units (unknown) date) (Reviewed 12/24/22 unknown) @ 14:06 by Nixon Sapp PA-C) (unknown) (no (unknown) (unknown) TAKE ONE TABLET BY (units (unknown) date) MOUTH DAILY AT 9 AM unknown) PATIENT NEEDS APPOINTMENT BEFORE NEXT (unknown) (no (unknown) (unknown) TAKE TWO TABLETS (units (unknown) date) BY MOUTH DAILY AT 9 unknown) AM and TAKE ONE TABLET BY MOUTH DAILY AT (unknown) (no (unknown) (unknown) Take 1 tablet by (units (unknown) date) mouth three times a unknown) day as needed for muscle spasm (unknown) (no (unknown) (unknown) Temperature 98.5 F (units (unknown) date) 12/24/22 11:26 unknown) (unknown) (no (unknown) (unknown) Throat:?posterior (units (unknown) date) oropharynx normal unknown) (unknown) (no (unknown) (unknown) Time Seen by (units (u nknown) date) Provider: 12/24/22 unknown) 13:33 (unknown) (no (unknown) (unknown) Urine Dip (units (unkn own) date) unknown) (unknown) (no (unknown) (unknown) Urine Specific (units (unknown) date) [place] 1.015 unknown) (unknown) (no (unknown) (unknown) Vital Signs - 8 hr (units (unknown) date) unknown) (unknown) (no (unknown) (unknown) Vital Signs (units (un known) date) unknown) (unknown) (no (unknown) (unknown) Vital signs: (units (u nknown) date) unknown) (unknown) (no (unknown) (unknown) You were evaluated (units (unknown) date) in the ED today for unknown) back pain. Your symptoms are likely due (unknown) (no (unknown) (unknown) abdomen and pelvis (units (unknown) date) shows the unknown) right-sided ovarian cyst as well. Appendix was (unknown) (no (unknown) (unknown) ago, was given (units (unknown) date) oxycodone 5 mg unknown) which her pharmacist refused to fill due to her (unknown) (no (unknown) (unknown) agrees to (units (unkn own) date) follow-up with unknown) OBSHLOMO Hartmann as soon as possible. ED return (unknown) (no (unknown) (unknown) alcohol intake (units (unknown) date) frequency: unknown) holidays/special occasions only (unknown) (no (unknown) (unknown) amlodipine 5 mg (units (unknown) date) tablet 5 mg PO unknown) DAILY 12/24/22 12/24/22 (unknown) (no (unknown) (unknown) amlodipine 5 mg (units (unknown) date) tablet unknown) (unknown) (no (unknown) (unknown) and Denies (units (unk nown) date) orthopnea unknown) (unknown) (no (unknown) (unknown) and Denies urinary (units (unknown) date) urgency unknown) (unknown) (no (unknown) (unknown) and Denies (units (unk nown) date) weakness unknown) (unknown) (no (unknown) (unknown) and below (units (unkn own) date) unknown) (unknown) (no (unknown) (unknown) apply one patch to (units (unknown) date) clean dry skin unknown) every 7 days for 28 days (unknown) (no (unknown) (unknown) atenolol 25 mg (units (unknown) date) tablet 25 mg PO BID unknown) 12/24/22 12/24/22 (unknown) (no (unknown) (unknown) atenolol 25 mg (units (unknown) date) tablet unknown) (unknown) (no (unknown) (unknown) buprenorphine 20 (units (unknown) date) mcg/hour patch unknown) weekly (unknown) (no (unknown) (unknown) buprenorphine 20 (units (unknown) date) mcg/hour weekly 1 unknown) patch topical QWEEK 12/24/22 12/24/22 (unknown) (no (unknown) (unknown) capsule (units (unkno wn) date) unknown) (unknown) (no (unknown) (unknown) chills, chest (units ( unknown) date) pain, shortness of unknown) breath, nausea, vomiting, abdominal pain, (unknown) (no (unknown) (unknown) citalopram 40 mg (units (unknown) date) tablet 40 mg PO unknown) DAILY 12/24/22 12/24/22 (unknown) (no (unknown) (unknown) citalopram 40 mg (units (unknown) date) tablet unknown) (unknown) (no (unknown) (unknown) concerned about (units (unknown) date) this pain being unknown) related to her kidney since her kidney is now in (unknown) (no (unknown) (unknown) cyclobenzaprine 10 (units (unknown) date) mg tablet 10 mg PO unknown) TID PRN muscle spasms 12/24/22 12/24/22 (unknown) (no (unknown) (unknown) cyclobenzaprine 10 (units (unknown) date) mg tablet unknown) (unknown) (no (unknown) (unknown) depression, Denies (units (unknown) date) homicidal ideation unknown) and Denies suicidal ideation (unknown) (no (unknown) (unknown) diarrhea, Denies (units (unknown) date) nausea and Denies unknown) vomiting (unknown) (no (unknown) (unknown) dysuria, (units (unkno wn) date) lightheadedness, unknown) dizziness, syncope. Patient states that she is not (unknown) (no (unknown) (unknown) experiencing some (units (unknown) date) right-sided unknown) flank/mid back pain 1 week ago, denies trauma. (unknown) (no (unknown) (unknown) falls, Denies (units ( unknown) date) lethargy and Denies unknown) weakness (unknown) (no (unknown) (unknown) finds a good (units (u nknown) date) position to rest unknown) in. Patient was seen in a walk-in clinic 2 days (unknown) (no (unknown) (unknown) front in the (units (u nknown) date) abdomen. 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 (unknown) (no (unknown) (unknown) immediate-release (units (unknown) date) unknown) (unknown) (no (unknown) (unknown) kidney transplant (units (unknown) date) was in 2018, when unknown) she had her bilateral kidneys removed, a new (unknown) (no (unknown) (unknown) kidney (units (unkno wn) date) transplanted into unknown) her right abdomen. Patient states that she started (unknown) (no (unknown) (unknown) lightheadedness, (units (unknown) date) Denies unknown) palpitations, Denies dyspnea, Denies dyspnea on exertion (unknown) (no (unknown) (unknown) monohydrate/macroc (units (unknown) date) rystals 100 mg unknown) (unknown) (no (unknown) (unknown) montelukast 10 mg (units (unknown) date) tablet 10 mg PO unknown) DAILY 12/24/22 12/24/22 (unknown) (no (unknown) (unknown) montelukast 10 mg (units (unknown) date) tablet unknown) (unknown) (no (unknown) (unknown) mycophenolate (units ( unknown) date) sodium 180 mg See unknown) Rx Instructions .Route .COMPLEX 12/24/22 (unknown) (no (unknown) (unknown) mycophenolate (units ( unknown) date) sodium 180 mg unknown) tablet,delayed release (DR/EC) (unknown) (no (unknown) (unknown) neck pain, Denies (units (unknown) date) sore throat and unknown) Denies throat swelling (unknown) (no (unknown) (unknown) nitrofurantoin 100 (units (unknown) date) mg PO DAILY unknown) 12/24/22 12/24/22 (unknown) (no (unknown) (unknown) nitrofurantoin (units (unknown) date) monohyd/m-cryst 100 unknown) mg capsule (unknown) (no (unknown) (unknown) normal. No (units (unk nown) date) inflammatory unknown) changes seen. There is no free fluid. Patient's (unknown) (no (unknown) (unknown) omeprazole 20 mg (units (unknown) date) capsule,delayed 40 unknown) mg PO DAILY 12/24/22 12/24/22 (unknown) (no (unknown) (unknown) omeprazole 20 mg (units (unknown) date) capsule,delayed unknown) release(DR/EC) (unknown) (no (unknown) (unknown) oxycodone 5 mg (units (unknown) date) tablet 5 mg PO Q6H unknown) PRN Pain (Scale Score 12/24/22 12/24/22 (unknown) (no (unknown) (unknown) oxycodone 5 mg (units (unknown) date) tablet unknown) (unknown) (no (unknown) (unknown) pain contract that (units (unknown) date) she has for her unknown) chronic back pain. Patient denies fever, (unknown) (no (unknown) (unknown) pain. Return to (units (unknown) date) the ED if you unknown) experience worsening symptoms, fever, chills, (unknown) (no (unknown) (unknown) persistent (units (unk nown) date) vomiting. unknown) (unknown) (no (unknown) (unknown) precautions were (units (unknown) date) discussed with unknown) patient and she verbalized understanding. (unknown) (no (unknown) (unknown) prednisone 5 mg (units (unknown) date) tablet 5 mg PO unknown) DAILY 12/24/22 12/24/22 (unknown) (no (unknown) (unknown) prednisone 5 mg (units (unknown) date) tablet unknown) (unknown) (no (unknown) (unknown) release (units (unkno wn) date) unknown) (unknown) (no (unknown) (unknown) symptoms likely (units (unknown) date) due to the ovarian unknown) cyst. Discussed findings with patient, she (unknown) (no (unknown) (unknown) tablet,delayed (units (unknown) date) release unknown) (unknown) (no (unknown) (unknown) tacrolimus 0.5 mg (units (unknown) date) capsule unknown) (unknown) (no (unknown) (unknown) tacrolimus 0.5 mg (units (unknown) date) capsule, 0.5 mg PO unknown) BID 12/24/22 12/24/22 (unknown) (no (unknown) (unknown) tenderness. (units (un known) date) unknown) (unknown) (no (unknown) (unknown) to a (units (unkno wn) date) musculoskeletal unknown) sprain/strain, you were treated with Percocet and morphine. (unknown) (no (unknown) (unknown) transdermal patch (units (unknown) date) unknown) (unknown) (no (unknown) (unknown) versus (units (unkno wn) date) musculoskeletal unknown) sprain/strain versus other. UA negative for UTI. (unknown) (no (unknown) (unknown) wheezing (units (unkno wn) date) unknown) Result panel 3 (unknown) (no (unknown) (unknown) (no value) (units (unk nown) date) unknown) (unknown) (no (unknown) (unknown) <Electronically (units (unknown) date) signed by Nixon unknown) Arabella Sapp> (unknown) (no (unknown) (unknown) <Electronically (units (unknown) date) signed by Geronimo unknown) Ainsley De LeonODavid> (unknown) (no (unknown) (unknown) <Electronically (units (unknown) date) signed by Geronimo unknown) Haley SchmitzO.> (unknown) (no (unknown) (unknown) <Nixon Sapp PA-C (units (unknown) date) - Last Filed: unknown) 12/24/22 19:43> (unknown) (no (unknown) (unknown) <Geronimo Schmitz, (units (unknown) date) DO - Last Filed: unknown) 12/24/22 19:51> (unknown) (no (unknown) (unknown) <cosigner> (units (unk nown) date) unknown) (unknown) (no (unknown) (unknown) 0.5 mg PO BID (units ( unknown) date) unknown) (unknown) (no (unknown) (unknown) 12/24/221942 (units ( unknown) date) unknown) (unknown) (no (unknown) (unknown) 12/24/221950 (units ( unknown) date) unknown) (unknown) (no (unknown) (unknown) 12/24/22 (units (unkno wn) date) unknown) (unknown) (no (unknown) (unknown) 1 patch topical (units (unknown) date) QWEEK unknown) (unknown) (no (unknown) (unknown) 10 mg PO DAILY (units (unknown) date) unknown) (unknown) (no (unknown) (unknown) 10 mg PO TID PRN (units (unknown) date) (Reason: muscle unknown) spasms) (unknown) (no (unknown) (unknown) 100 mg PO DAILY (units (unknown) date) unknown) (unknown) (no (unknown) (unknown) 16:54 (units (unkno wn) date) unknown) (unknown) (no (unknown) (unknown) [id number] (units (unkno wn) date) unknown) (unknown) (no (unknown) (unknown) 25 mg PO BID (units (u nknown) date) unknown) (unknown) (no (unknown) (unknown) 300 mg PO BID (units ( unknown) date) unknown) (unknown) (no (unknown) (unknown) 40 mg PO DAILY (units (unknown) date) unknown) (unknown) (no (unknown) (unknown) 5 PM (units (unkno wn) date) unknown) (unknown) (no (unknown) (unknown) 5 mg PO DAILY (units ( unknown) date) unknown) (unknown) (no (unknown) (unknown) 5 mg PO Q6H PRN (units (unknown) date) (Reason: Pain unknown) (Scale Score 7-10)) (unknown) (no (unknown) (unknown) 52-year-old female (units (unknown) date) with past medical unknown) history kidney transplant presents to the (unknown) (no (unknown) (unknown) 7-10) (units (unkno wn) date) unknown) (unknown) (no (unknown) (unknown) Abdomen is benign. (units (unknown) date) Patient given unknown) Percocet for pain. Likely discharge home with (unknown) (no (unknown) (unknown) Abdomen is soft, (units (unknown) date) nondistended, unknown) nontender to palpation. There is no CVA (unknown) (no (unknown) (unknown) Activity (units (unkno wn) date) Restrictions/Additi unknown) onal Instructions: (unknown) (no (unknown) (unknown) Age/Sex: 52 / F (units (unknown) date) unknown) (unknown) (no (unknown) (unknown) Allergic/Immunolog (units (unknown) date) ic unknown) (unknown) (no (unknown) (unknown) Allergic/Immunolog (units (unknown) date) ic: Denies unknown) urticaria, Denies throat swelling and Denies (unknown) (no (unknown) (unknown) Allergies (units (unkn own) date) unknown) (unknown) (no (unknown) (unknown) Allergy/AdvReac (units (unknown) date) Type Severity unknown) Reaction Status Date / Time (unknown) (no (unknown) (unknown) Auscultation:?shyla (units (unknown) date) r to auscultation unknown) bilaterally (unknown) (no (unknown) (unknown) Back pain (units (unkn own) date) unknown) (unknown) (no (unknown) (unknown) Skyler Mosqueda MD (units (unknown) date) [Primary Care unknown) Provider] (unknown) (no (unknown) (unknown) Bedside Urine (units ( unknown) date) Bilirubin - unknown) Negative (unknown) (no (unknown) (unknown) Bedside Urine (units ( unknown) date) Glucose Negative unknown) (unknown) (no (unknown) (unknown) Bedside Urine (units ( unknown) date) Ketone - Negative unknown) (unknown) (no (unknown) (unknown) Bedside Urine (units ( unknown) date) Leukocytes - unknown) Negative (unknown) (no (unknown) (unknown) Bedside Urine (units ( unknown) date) Nitrite - Negative unknown) (unknown) (no (unknown) (unknown) Bedside Urine (units ( unknown) date) Occult Blood - unknown) Negative (unknown) (no (unknown) (unknown) Bedside Urine (units ( unknown) date) Protein - Negative unknown) (unknown) (no (unknown) (unknown) Bedside Urine (units ( unknown) date) Urobilinogen - unknown) Negative (unknown) (no (unknown) (unknown) Bedside Urine pH (units (unknown) date) 6.0 unknown) (unknown) (no (unknown) (unknown) Blood Pressure (units (unknown) date) 125/69 unknown) (unknown) (no (unknown) (unknown) Blood Pressure (units (unknown) date) 142/81 H 12/24/22 unknown) 11:26 (unknown) (no (unknown) (unknown) CT ultrasound (units ( unknown) date) shows right-sided unknown) complex ovarian cyst, likely hemorrhagic. CT (unknown) (no (unknown) (unknown) Cardio (units (unkno wn) date) unknown) (unknown) (no (unknown) (unknown) Cardiovascular (units (unknown) date) unknown) (unknown) (no (unknown) (unknown) Cardiovascular: (units (unknown) date) Denies chest pain, unknown) Denies irregular heart rhythm, Denies (unknown) (no (unknown) (unknown) Chief Complaint: (units (unknown) date) Back Pain/Injury unknown) (unknown) (no (unknown) (unknown) Clinical (units (unkno wn) date) Impression: unknown) (unknown) (no (unknown) (unknown) Const (units (unkno wn) date) unknown) (unknown) (no (unknown) (unknown) Constitutional (units (unknown) date) unknown) (unknown) (no (unknown) (unknown) Constitutional: (units (unknown) date) Denies chills, unknown) Denies fatigue, Denies fever(s), Denies frequent (unknown) (no (unknown) (unknown) Cosign (units (unkno wn) date) unknown) (unknown) (no (unknown) (unknown) Course (units (unkno wn) date) unknown) (unknown) (no (unknown) (unknown) : 1970 (units (unknown) date) Acct:[id number] unknown) (unknown) (no (unknown) (unknown) Date of Service: (units (unknown) date) 12/24/22 unknown) (unknown) (no (unknown) (unknown) Denies frequent (units (unknown) date) falls, Denies loss unknown) of vision, Denies numbness, Denies tingling (unknown) (no (unknown) (unknown) Denies loss of (units (unknown) date) vision unknown) (unknown) (no (unknown) (unknown) Denies numbness (units (unknown) date) and Denies tingling unknown) (unknown) (no (unknown) (unknown) Departure (units (unkn own) date) unknown) (unknown) (no (unknown) (unknown) Discharge Plan (units (unknown) date) unknown) (unknown) (no (unknown) (unknown) Discontinued (units (u nknown) date) Medications unknown) (unknown) (no (unknown) (unknown) Documented By: CTS (units (unknown) date) unknown) (unknown) (no (unknown) (unknown) Documented By: KEB (units (unknown) date) unknown) (unknown) (no (unknown) (unknown) Documented By: KLS (units (unknown) date) unknown) (unknown) (no (unknown) (unknown) Dr Schmitz Co-Sign (units (unknown) date) Statement: I was unknown) available for consultation during this (unknown) (no (unknown) (unknown) ED Attending (units (u nknown) date) Cosignature unknown) Attestation: (unknown) (no (unknown) (unknown) ED return (units (unkn own) date) precautions. unknown) (unknown) (no (unknown) (unknown) ED with 1 week of (units (unknown) date) right-sided mid unknown) back/flank pain. Concern for UTI versus pyelo (unknown) (no (unknown) (unknown) ED with 1 week of (units (unknown) date) right-sided mid unknown) back/flank pain. Patient states that the (unknown) (no (unknown) (unknown) ENT (units (unkno wn) date) unknown) (unknown) (no (unknown) (unknown) ER Physician: (units ( unknown) date) Sekou,Hyma P.A-C unknown) (unknown) (no (unknown) (unknown) Ears, Nose, Mouth, (units (unknown) date) and Throat: Denies unknown) change in voice, Denies dizziness, Denies (unknown) (no (unknown) (unknown) Ears:?hearing (units ( unknown) date) grossly normal unknown) bilaterally (unknown) (no (unknown) (unknown) Effort + (units (unkno wn) date) Inspection:?normal unknown) respiratory effort (unknown) (no (unknown) (unknown) Emergency Report (units (unknown) date) unknown) (unknown) (no (unknown) (unknown) Endocrine (units (unkn own) date) unknown) (unknown) (no (unknown) (unknown) Endocrine: Denies (units (unknown) date) fatigue, Denies unknown) flushing and Denies palpitations (unknown) (no (unknown) (unknown) Esterase (units (unkno wn) date) unknown) (unknown) (no (unknown) (unknown) Exam Narrative: (units (unknown) date) unknown) (unknown) (no (unknown) (unknown) Exam (units (unkno wn) date) unknown) (unknown) (no (unknown) (unknown) Eyes (units (unkno wn) date) unknown) (unknown) (no (unknown) (unknown) Eyes: Denies (units (u nknown) date) change in vision, unknown) Denies eye discharge, Denies irritation and (unknown) (no (unknown) (unknown) Face and (units (unkno wn) date) sinus:?normal unknown) facial exam and sinuses nontender (unknown) (no (unknown) (unknown) GI (units (unkno wn) date) unknown) (unknown) (no (unknown) (unknown) Gastrointestinal (units (unknown) date) unknown) (unknown) (no (unknown) (unknown) Gastrointestinal: (units (unknown) date) Denies abdominal unknown) pain, Denies change in bowel habits, Denies (unknown) (no (unknown) (unknown) General (units (unkno wn) date) unknown) (unknown) (no (unknown) (unknown) General:?appearanc (units (unknown) date) e normal, both eyes unknown) and all related structures (unknown) (no (unknown) (unknown) General:?cooperati (units (unknown) date) ve, healthy unknown) appearing and comfortable (unknown) (no (unknown) (unknown) General:?patient (units (unknown) date) alert, patient unknown) awake and patient oriented x3 (unknown) (no (unknown) (unknown) Genitourinary (units ( unknown) date) unknown) (unknown) (no (unknown) (unknown) Genitourinary: (units (unknown) date) Denies hematuria, unknown) Denies flank pain, Denies urinary incontinence (unknown) (no (unknown) (unknown) HENMT (units (unkno wn) date) unknown) (unknown) (no (unknown) (unknown) HPI - Back (units (unk nown) date) Pain/Injury unknown) (unknown) (no (unknown) (unknown) HPI Narrative: (units (unknown) date) unknown) (unknown) (no (unknown) (unknown) Head:?normal to (units (unknown) date) inspection unknown) (unknown) (no (unknown) (unknown) Hematologic/Lympha (units (unknown) date) tic unknown) (unknown) (no (unknown) (unknown) Hematologic/Lympha (units (unknown) date) tic: Denies easy unknown) bruising (unknown) (no (unknown) (unknown) History and (units (un known) date) physical exam more unknown) consistent with a musculoskeletal sprain/strain. (unknown) (no (unknown) (unknown) History of Present (units (unknown) date) Illness unknown) (unknown) (no (unknown) (unknown) History of (units (unk nown) date) frequent urinary unknown) tract infections (unknown) (no (unknown) (unknown) Home Medications (units (unknown) date) unknown) (unknown) (no (unknown) (unknown) Initial Vital (units ( unknown) date) Signs unknown) (unknown) (no (unknown) (unknown) Initial Vital (units ( unknown) date) Signs: unknown) (unknown) (no (unknown) (unknown) Instructions: DI (units (unknown) date) for Muscle Strain unknown) (unknown) (no (unknown) (unknown) Integumentary/[place] (units (unknown) date) sts unknown) (unknown) (no (unknown) (unknown) [facility] (units (unknown) date) [address] unknown) [place] [id number] (unknown) (no (unknown) (unknown) Kidney replaced by (units (unknown) date) transplant unknown) (unknown) (no (unknown) (unknown) Lab Data (units (unkno wn) date) unknown) (unknown) (no (unknown) (unknown) Label Comments: (units (unknown) date) unknown) (unknown) (no (unknown) (unknown) Labs: (units (unkno wn) date) unknown) (unknown) (no (unknown) (unknown) Last Admin: (units (un known) date) 12/24/22 14:01 unknown) Dose: Not Given (unknown) (no (unknown) (unknown) Last Admin: (units (un known) date) 12/24/22 14:06 unknown) Dose: 1 tab (unknown) (no (unknown) (unknown) Last Admin: (units (un known) date) 12/24/22 16:42 unknown) Dose: Not Given (unknown) (no (unknown) (unknown) Last Admin: (units (un known) date) 12/24/22 16:54 unknown) Dose: Not Given (unknown) (no (unknown) (unknown) MDM - Back (units (unk nown) date) Pain/Injury unknown) (unknown) (no (unknown) (unknown) MDM Narrative (units ( unknown) date) unknown) (unknown) (no (unknown) (unknown) Medical History (units (unknown) date) (Reviewed 12/24/22 unknown) @ 14:06 by Nixon Sapp PA-C) (unknown) (no (unknown) (unknown) Medical decision (units (unknown) date) making narrative: unknown) (unknown) (no (unknown) (unknown) Medical records (units (unknown) date) reviewed: Yes unknown) (unknown) (no (unknown) (unknown) Medication (units (unk nown) date) Instructions unknown) Recorded Confirmed (unknown) (no (unknown) (unknown) Morphine Sulfate (units (unknown) date) (Morphine 4 Mg/Ml unknown) Inj) 4 mg IM NOW ONE (unknown) (no (unknown) (unknown) Morphine Sulfate (units (unknown) date) (Morphine 4 Mg/Ml unknown) Inj) 4 mg IV NOW ONE (unknown) (no (unknown) (unknown) Mouth:?oral (units (un known) date) mucosae normal unknown) (unknown) (no (unknown) (unknown) Musculoskeletal (units (unknown) date) unknown) (unknown) (no (unknown) (unknown) Musculoskeletal: (units (unknown) date) Reports back pain, unknown) Denies muscle weakness, Denies neck pain, (unknown) (no (unknown) (unknown) Narrative (units (unkn own) date) unknown) (unknown) (no (unknown) (unknown) Neck (units (unkno wn) date) unknown) (unknown) (no (unknown) (unknown) Neck:?normal (units (u nknown) date) visual inspection unknown) and no lymphadenopathy noted (unknown) (no (unknown) (unknown) Neuro (units (unkno wn) date) unknown) (unknown) (no (unknown) (unknown) Neurologic (units (unk nown) date) unknown) (unknown) (no (unknown) (unknown) Neurologic: Denies (units (unknown) date) behavioral changes, unknown) Denies confusion, Denies dizziness, (unknown) (no (unknown) (unknown) No Action (units (unkn own) date) unknown) (unknown) (no (unknown) (unknown) No Known Drug (units ( unknown) date) Allergies Allergy unknown) Verified 12/24/22 11:26 (unknown) (no (unknown) (unknown) No midline (units (unk nown) date) tenderness to unknown) palpation. No paraspinal tenderness to palpation. (unknown) (no (unknown) (unknown) Nose:?external (units (unknown) date) nose normal unknown) (unknown) (no (unknown) (unknown) Ondansetron HCl (units (unknown) date) (Ondansetron 4 Mg/2 unknown) Ml Inj) 4 mg IV NOW PRN (unknown) (no (unknown) (unknown) Ordered: (units (unkno wn) date) unknown) (unknown) (no (unknown) (unknown) Orders (units (unkno wn) date) unknown) (unknown) (no (unknown) (unknown) Oxycodone/Acetamin (units (unknown) date) ophen unknown) (Oxycodone/Acetamin ophen 5/325 Tablet) 1 tab PO NOW ONE (unknown) (no (unknown) (unknown) Oxygen Delivery (units (unknown) date) Method 12/24/22 unknown) 11:26 (unknown) (no (unknown) (unknown) Oxygen Delivery (units (unknown) date) Method Room Air unknown) (unknown) (no (unknown) (unknown) PRN Reason: Nausea (units (unknown) date) And Vomiting unknown) (unknown) (no (unknown) (unknown) Patient (units (unkno wn) date) Disposition: Home unknown) (unknown) (no (unknown) (unknown) Patient History (units (unknown) date) unknown) (unknown) (no (unknown) (unknown) Patient states (units (unknown) date) that the pain is unknown) aggravated with movement, alleviated when she (unknown) (no (unknown) (unknown) Patient: (units (unkno wn) date) Yudi Arteaga MR#: unknown) [id number] (unknown) (no (unknown) (unknown) Please follow-up (units (unknown) date) with your pain unknown) management doctor for further management of the (unknown) (no (unknown) (unknown) Prescriptions: (units (unknown) date) unknown) (unknown) (no (unknown) (unknown) Psychiatric (units (un known) date) unknown) (unknown) (no (unknown) (unknown) Psychiatric: Denies (units (unknown) date) anxiety, Denies unknown) behavioral changes, Denies confusion, Denies (unknown) (no (unknown) (unknown) Pulse Oximetry 97 (units (unknown) date) 12/24/22 11:26 unknown) (unknown) (no (unknown) (unknown) Pulse Oximetry 99 (units (unknown) date) unknown) (unknown) (no (unknown) (unknown) Pulse Rate 62 (units ( unknown) date) unknown) (unknown) (no (unknown) (unknown) Pulse Rate 80 (units ( unknown) date) 12/24/22 11:26 unknown) (unknown) (no (unknown) (unknown) REFILL (units (unkno wn) date) unknown) (unknown) (no (unknown) (unknown) ROS Unobtainable: (units (unknown) date) All systems unknown) reviewed + are unremarkable except as noted in HPI (unknown) (no (unknown) (unknown) Rate:?regular rate (units (unknown) date) unknown) (unknown) (no (unknown) (unknown) Referrals: (units (unk nown) date) unknown) (unknown) (no (unknown) (unknown) Related Data (units (u nknown) date) unknown) (unknown) (no (unknown) (unknown) Resp (units (unkno wn) date) unknown) (unknown) (no (unknown) (unknown) Respiratory Rate (units (unknown) date) 16 unknown) (unknown) (no (unknown) (unknown) Respiratory Rate (units (unknown) date) 18 12/24/22 11:26 unknown) (unknown) (no (unknown) (unknown) Respiratory (units (un known) date) unknown) (unknown) (no (unknown) (unknown) Respiratory: Denies (units (unknown) date) cough, Denies unknown) dyspnea, Denies dyspnea on exertion and Denies (unknown) (no (unknown) (unknown) Review of Systems (units (unknown) date) unknown) (unknown) (no (unknown) (unknown) Rhythm:?regular (units (unknown) date) rhythm unknown) (unknown) (no (unknown) (unknown) Rx Instructions: (units (unknown) date) unknown) (unknown) (no (unknown) (unknown) See Rx (units (unkno wn) date) Instructions .ROUTE unknown) .COMPLEX (unknown) (no (unknown) (unknown) Signed By: (units (unk nown) date) unknown) (unknown) (no (unknown) (unknown) Skin/Breast: (units (u nknown) date) Denies pruritus, unknown) Denies erythema, Denies rash and Denies wounds (unknown) (no (unknown) (unknown) Smoking Status: (units (unknown) date) Current every day unknown) smoker (unknown) (no (unknown) (unknown) Social History (units (unknown) date) (Reviewed 12/24/22 unknown) @ 14:06 by Nixon Sapp PA-C) (unknown) (no (unknown) (unknown) Sodium Chloride (units (unknown) date) (Normal Saline unknown) 0.9%) 1,000 mls @ 1,000 mls/hr IV BOLUS ONE (unknown) (no (unknown) (unknown) Source: patient (units (unknown) date) unknown) (unknown) (no (unknown) (unknown) Stand Alone Forms: (units (unknown) date) Patient Portal/API unknown) (unknown) (no (unknown) (unknown) Stated Complaint: (units (unknown) date) back pain T-7 unknown) (unknown) (no (unknown) (unknown) Stop: 12/24/22 (units (unknown) date) 13:51 unknown) (unknown) (no (unknown) (unknown) Stop: 12/24/22 (units (unknown) date) 14:00 unknown) (unknown) (no (unknown) (unknown) Stop: 12/24/22 (units (unknown) date) 16:09 unknown) (unknown) (no (unknown) (unknown) Stop: 12/24/22 (units (unknown) date) 16:33 unknown) (unknown) (no (unknown) (unknown) Substance Use (units ( unknown) date) Type: does not use unknown) (unknown) (no (unknown) (unknown) Surgical History (units (unknown) date) (Reviewed 12/24/22 unknown) @ 14:06 by Nixon Sapp PA-C) (unknown) (no (unknown) (unknown) TAKE ONE TABLET BY (units (unknown) date) MOUTH DAILY AT 9 AM unknown) PATIENT NEEDS APPOINTMENT BEFORE NEXT (unknown) (no (unknown) (unknown) TAKE TWO TABLETS (units (unknown) date) BY MOUTH DAILY AT 9 unknown) AM and TAKE ONE TABLET BY MOUTH DAILY AT (unknown) (no (unknown) (unknown) Take 1 tablet by (units (unknown) date) mouth three times a unknown) day as needed for muscle spasm (unknown) (no (unknown) (unknown) Temperature 98.5 F (units (unknown) date) 12/24/22 11:26 unknown) (unknown) (no (unknown) (unknown) Throat:?posterior (units (unknown) date) oropharynx normal unknown) (unknown) (no (unknown) (unknown) Time Seen by (units (u nknown) date) Provider: 12/24/22 unknown) 13:33 (unknown) (no (unknown) (unknown) Urine Dip (units (unkn own) date) unknown) (unknown) (no (unknown) (unknown) Urine Specific (units (unknown) date) [place] 1.015 unknown) (unknown) (no (unknown) (unknown) Vital Signs - 8 hr (units (unknown) date) unknown) (unknown) (no (unknown) (unknown) Vital Signs (units (un known) date) unknown) (unknown) (no (unknown) (unknown) Vital signs: (units (u nknown) date) unknown) (unknown) (no (unknown) (unknown) You were evaluated (units (unknown) date) in the ED today for unknown) back pain. Your symptoms are likely due (unknown) (no (unknown) (unknown) abdomen and pelvis (units (unknown) date) shows the unknown) right-sided ovarian cyst as well. Appendix was (unknown) (no (unknown) (unknown) administrative (units (unknown) date) purposes only. I unknown) did not have direct contact with this patient (unknown) (no (unknown) (unknown) ago, was given (units (unknown) date) oxycodone 5 mg unknown) which her pharmacist refused to fill due to her (unknown) (no (unknown) (unknown) agrees to (units (unkn own) date) follow-up with unknown) [facility] Hartmann as soon as possible. ED return (unknown) (no (unknown) (unknown) alcohol intake (units (unknown) date) frequency: unknown) holidays/special occasions only (unknown) (no (unknown) (unknown) amlodipine 5 mg (units (unknown) date) tablet 5 mg PO unknown) DAILY 12/24/22 12/24/22 (unknown) (no (unknown) (unknown) amlodipine 5 mg (units (unknown) date) tablet unknown) (unknown) (no (unknown) (unknown) and Denies (units (unk nown) date) orthopnea unknown) (unknown) (no (unknown) (unknown) and Denies urinary (units (unknown) date) urgency unknown) (unknown) (no (unknown) (unknown) and Denies (units (unk nown) date) weakness unknown) (unknown) (no (unknown) (unknown) and below (units (unkn own) date) unknown) (unknown) (no (unknown) (unknown) apply one patch to (units (unknown) date) clean dry skin unknown) every 7 days for 28 days (unknown) (no (unknown) (unknown) atenolol 25 mg (units (unknown) date) tablet 25 mg PO BID unknown) 12/24/22 12/24/22 (unknown) (no (unknown) (unknown) atenolol 25 mg (units (unknown) date) tablet unknown) (unknown) (no (unknown) (unknown) buprenorphine 20 (units (unknown) date) mcg/hour patch unknown) weekly (unknown) (no (unknown) (unknown) buprenorphine 20 (units (unknown) date) mcg/hour weekly 1 unknown) patch topical QWEEK 12/24/22 12/24/22 (unknown) (no (unknown) (unknown) capsule (units (unkno wn) date) unknown) (unknown) (no (unknown) (unknown) chills, chest (units ( unknown) date) pain, shortness of unknown) breath, nausea, vomiting, abdominal pain, (unknown) (no (unknown) (unknown) citalopram 40 mg (units (unknown) date) tablet 40 mg PO unknown) DAILY 12/24/22 12/24/22 (unknown) (no (unknown) (unknown) citalopram 40 mg (units (unknown) date) tablet unknown) (unknown) (no (unknown) (unknown) concerned about (units (unknown) date) this pain being unknown) related to her kidney since her kidney is now in (unknown) (no (unknown) (unknown) cyclobenzaprine 10 (units (unknown) date) mg tablet 10 mg PO unknown) TID PRN muscle spasms 12/24/22 12/24/22 (unknown) (no (unknown) (unknown) cyclobenzaprine 10 (units (unknown) date) mg tablet unknown) (unknown) (no (unknown) (unknown) depression, Denies (units (unknown) date) homicidal ideation unknown) and Denies suicidal ideation (unknown) (no (unknown) (unknown) diarrhea, Denies (units (unknown) date) nausea and Denies unknown) vomiting (unknown) (no (unknown) (unknown) during this visit. (units (unknown) date) They were seen unknown) independently by the [facility]. (unknown) (no (unknown) (unknown) dysuria, (units (unkno wn) date) lightheadedness, unknown) dizziness, syncope. Patient states that she is not (unknown) (no (unknown) (unknown) experiencing some (units (unknown) date) right-sided unknown) flank/mid back pain 1 week ago, denies trauma. (unknown) (no (unknown) (unknown) falls, Denies (units ( unknown) date) lethargy and Denies unknown) weakness (unknown) (no (unknown) (unknown) finds a good (units (u nknown) date) position to rest unknown) in. Patient was seen in a walk-in clinic 2 days (unknown) (no (unknown) (unknown) front in the (units (u nknown) date) abdomen. 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 (unknown) (no (unknown) (unknown) immediate-release (units (unknown) date) unknown) (unknown) (no (unknown) (unknown) kidney transplant (units (unknown) date) was in 2018, when unknown) she had her bilateral kidneys removed, a new (unknown) (no (unknown) (unknown) kidney (units (unkno wn) date) transplanted into unknown) her right abdomen. Patient states that she started (unknown) (no (unknown) (unknown) lightheadedness, (units (unknown) date) Denies unknown) palpitations, Denies dyspnea, Denies dyspnea on exertion (unknown) (no (unknown) (unknown) monohydrate/macroc (units (unknown) date) rystals 100 mg unknown) (unknown) (no (unknown) (unknown) montelukast 10 mg (units (unknown) date) tablet 10 mg PO unknown) DAILY 12/24/22 12/24/22 (unknown) (no (unknown) (unknown) montelukast 10 mg (units (unknown) date) tablet unknown) (unknown) (no (unknown) (unknown) mycophenolate (units ( unknown) date) sodium 180 mg See unknown) Rx Instructions .Route .COMPLEX 12/24/22 (unknown) (no (unknown) (unknown) mycophenolate (units ( unknown) date) sodium 180 mg unknown) tablet,delayed release (DR/EC) (unknown) (no (unknown) (unknown) neck pain, Denies (units (unknown) date) sore throat and unknown) Denies throat swelling (unknown) (no (unknown) (unknown) nitrofurantoin 100 (units (unknown) date) mg PO DAILY unknown) 12/24/22 12/24/22 (unknown) (no (unknown) (unknown) nitrofurantoin (units (unknown) date) monohyd/m-cryst 100 unknown) mg capsule (unknown) (no (unknown) (unknown) normal. No (units (unk nown) date) inflammatory unknown) changes seen. There is no free fluid. Patient's (unknown) (no (unknown) (unknown) omeprazole 20 mg (units (unknown) date) capsule,delayed 40 unknown) mg PO DAILY 12/24/22 12/24/22 (unknown) (no (unknown) (unknown) omeprazole 20 mg (units (unknown) date) capsule,delayed unknown) release(DR/EC) (unknown) (no (unknown) (unknown) oxycodone 5 mg (units (unknown) date) tablet 5 mg PO Q6H unknown) PRN Pain (Scale Score 12/24/22 12/24/22 (unknown) (no (unknown) (unknown) oxycodone 5 mg (units (unknown) date) tablet unknown) (unknown) (no (unknown) (unknown) pain contract that (units (unknown) date) she has for her unknown) chronic back pain. Patient denies fever, (unknown) (no (unknown) (unknown) pain. Return to (units (unknown) date) the ED if you unknown) experience worsening symptoms, fever, chills, (unknown) (no (unknown) (unknown) patient's (units (unkn own) date) emergency unknown) department visit. This chart is signed by myself for (unknown) (no (unknown) (unknown) persistent (units (unk nown) date) vomiting. unknown) (unknown) (no (unknown) (unknown) precautions were (units (unknown) date) discussed with unknown) patient and she verbalized understanding. (unknown) (no (unknown) (unknown) prednisone 5 mg (units (unknown) date) tablet 5 mg PO unknown) DAILY 12/24/22 12/24/22 (unknown) (no (unknown) (unknown) prednisone 5 mg (units (unknown) date) tablet unknown) (unknown) (no (unknown) (unknown) release (units (unkno wn) date) unknown) (unknown) (no (unknown) (unknown) symptoms likely (units (unknown) date) due to the ovarian unknown) cyst. Discussed findings with patient, she (unknown) (no (unknown) (unknown) tablet,delayed (units (unknown) date) release unknown) (unknown) (no (unknown) (unknown) tacrolimus 0.5 mg (units (unknown) date) capsule unknown) (unknown) (no (unknown) (unknown) tacrolimus 0.5 mg (units (unknown) date) capsule, 0.5 mg PO unknown) BID 12/24/22 12/24/22 (unknown) (no (unknown) (unknown) tenderness. (units (un known) date) unknown) (unknown) (no (unknown) (unknown) to a (units (unkno wn) date) musculoskeletal unknown) sprain/strain, you were treated with Percocet and morphine. (unknown) (no (unknown) (unknown) transdermal patch (units (unknown) date) unknown) (unknown) (no (unknown) (unknown) versus (units (unkno wn) date) musculoskeletal unknown) sprain/strain versus other. UA negative for UTI. (unknown) (no (unknown) (unknown) wheezing (units (unkno wn) date) unknown) Social History date description facility 2022-12-24 00:00 Smokes tobacco daily (finding) [facility] Vital Signs date measurement value units 2022-12-22 00:00 BMI 39.79 kg/m2 2022-12-22 00:00 BP_diastolic 92 mmHg 2022-12-22 00:00 BP_systolic 126 mmHg 2022-12-22 00:00 heart_rate 66 /min 2022-12-22 00:00 height_metric 152.4 cm 2022-12-22 00:00 height_standard 60 in 2022-12-22 00:00 respiration_rate 16 /min 2022-12-22 00:00 temperature_metric 36.67 C 2022-12-22 00:00 temperature_standard 98 F 2022-12-22 00:00 weight_metric 92.08 kg 2022-12-22 00:00 weight_standard 203 lb 2022-12-24 00:00 BMI 38.7 kg/m2 2022-12-24 00:00 BP_diastolic 69 mmHg 2022-12-24 00:00 BP_systolic 125 mmHg 2022-12-24 00:00 heart_rate 62 /min 2022-12-24 00:00 height_metric 152.4 cm 2022-12-24 00:00 height_standard 60 in 2022-12-24 00:00 o2_saturation 99 % 2022-12-24 00:00 respiration_rate 16 /min 2022-12-24 00:00 temperature_metric 36.94 C 2022-12-24 00:00 temperature_standard 98.5 F 2022-12-24 00:00 weight_metric 89.81 kg 2022-12-24 00:00 weight_standard 198 lb
[2023-01-07 17:21] LABS: BACTERIA,URINE Few /HPF (None Seen); RBC,URINE 0-5 /HPF (0-5); SQUAMOUS EPITHELIAL CELL,UR MOD Squamous (<= Few)
[2023-01-07 17:26] LABS: HCG UR QUAL NEGATIVE
[2023-01-07] MEDS ORDERED: CYCLOBENZAPRINE 10 MG TABLET PO STA (17:26)
[2023-01-07] MEDS ORDERED: HYDROmorphone 1 MG/ML CARPUJECT IM STA (17:27)
--- NOTE | 2023-01-07 18:01 | CT Report ---
PROCEDURE: ABDOMEN/PELVIS WO INDICATIONS: right flank pain. renal transplant pt TECHNIQUE: Noncontrast 5 mm thick sections acquired from the diaphragms to the symphysis. 5 mm coronal and sagi ttal reformats were then performed. For radiation dose reduction, the following was used: automated exposure control, adjustment of mA and/or kV according to patient size. COMPARISON: None. FINDINGS: Image quality: Excellent. ABDOMEN: Lung bases: Right middle lobe scars and atelectasis. Heart size is normal. Solid organs: There are innumerable hepatic cysts. Liver is normal in size. A calcific density along the anterior capsule of liver is noted, probably a remote granulomas. Spleen is normal in size. Gal lbladder is unremarkable. Pancreas is normal in contours. No adrenal nodules. The [place] kidneys are surgically absent. There is a transplant kidney in the right iliac fossa. No s tones or hydronephrosis. Peritoneum and bowel: Unenhanced bowel loops demonstrate normal wall thickness and caliber. No free fluid or air. Nodes and vessels: No retroperitoneal or mesenteric adenopathy by size criteria. Aorta and inferior vena cava are normal in caliber. Miscellaneous: No ventral hernias. PELVIS: Genitourinary: Bladder wall thickness is normal. Miscellaneous: No inguinal hernias or adenopathy. Bones: No suspicious bony lesions. Scoliosis and moderate degenerative changes in lumbar spine. The re is partial sacralization of L5. No vertebral body compression fractures. IMPRESSION: 1. A cause for right flank pain is not identified. 2. Transplant kidney in the iliac fossa. No stones or hydronephrosis. 3. Multiple hepatic cysts. 4. Scoliosis and moderate degenerative changes in lumbar spine. 5. Partial sacralization of L5. Reviewed by: Nakia Polo MD on 01/07/2023 4:59 PM AKDT Approved by: Nakia Polo MD on 01/07/2023 4:59 PM AKDT Station ID: [id number]
[2023-01-07] MEDS ORDERED: CHERRY SYRUP 10 ML UDC PO ONE (18:22)
[2023-01-07] MEDS ORDERED: ACETAMINOPHEN 325 MG TABLET PO STA (18:22)
[2023-01-07] MEDS ORDERED: DEXAMETHASONE 10 MG/ML VIAL PO STA (18:22)
--- NOTE | 2023-01-07 18:25 | ED Physician Documentation ---
PD HPI BACK PAIN - Stated complaint Stated Complaint: BACK PX - Chief complaint Chief Complaint: Abd Pain - History obtained from History obtained from: Patient - History of Present Illness Timing - onset: How many weeks ago (2 1/2) Timing - duration: Weeks Timing - details: Gradual onset, Still present Location: Mid, Right Quality: Pain, Sharp, Aching Associated symptoms: No: Fever, Weakness, Numbness Worsened by: Movement. No: Palpation Contributing factors: No: Trauma Similar symptoms before: Has not had sx before Recently seen: Clinic (walk in clinc 2 weeks ago and rx as muscle strain/spasm with flexeril and tylenol. Went to [facility] er and also muscle releaxant. No testing. Pain continues and patient concerned about more than muscular.), Emergency Dept ([facility] ER with Rx oxycodone 5 mg tabs, and muscle relaxant again.) Review of Systems Constitutional: denies: Fever, Chills Skin: denies: Rash, Lesions Neurologic: denies: Focal weakness, Numbness PD PAST MEDICAL HISTORY - Past Medical History : Other (renal cysts severe with nephrectomy and renal transplant years ago. Has been doing well. ) Musculoskeletal: Chronic back pain (on pain management through pain clinc. ) - Present Medications Home Medications: Ambulatory Orders Medication Instructions Recorded Confirmed Cyclobenzaprine [Flexeril] 10 mg PO TID PRN #30 tablet 01/07/23 Hydrocodone/Acetaminophen 1 each PO Q6H PRN #20 tablet 01/07/23 [Hydrocodone-Acetamin 10-325 mg] dexAMETHasone [Decadron] 4 mg PO DAILY #5 tablet 01/07/23 - Allergies Allergies/Adverse Reactions: Allergies Allergy/AdvReac Type Severity Reaction Status Date / Time No Known Drug Allergies Allergy Verified 01/07/23 16:35 PD ED PE NORMAL - Vitals Vital signs reviewed: Yes - General General: Alert and oriented X 3, Well developed/nourished, Other (appears in considerable pain. ) Results - Vitals Vitals: Vital Signs - 24 hr 01/07/23 01/07/23 16:30 17:46 Temperature 36.8 C Heart Rate 82 Respiratory 18 15 Rate Blood Pressure 143/102 H O2 Saturation 96 100 Oxygen O2 Source Room air - Labs Labs: Laboratory Tests 01/07/23 01/07/23 01/07/23 16:36 16:48 16:48 WBC 11.0 H RBC 5.17 Hgb 15.5 Hct 49.9 H MCV 96.5 MCH 30.0 MCHC 31.1 L RDW 14.2 Plt Count 231 MPV 9.1 Neut # (Auto) 9.2 H Lymph # (Auto) 1.2 L Bent # (Auto) 0.5 Eos # (Auto) 0.0 Baso # (Auto) 0.0 Absolute Nucleated RBC 0.00 Nucleated RBC % 0.0 Sodium 138 Potassium 4.5 Chloride 106 Carbon Dioxide 22 Anion Gap 10.0 BUN 17 Creatinine 1.2 H Estimated GFR (MDRD) 47 L Glucose 132 H Calcium 9.5 Total Bilirubin 0.6 AST 18 ALT 28 Alkaline Phosphatase 96 Total Protein 7.7 Albumin 4.6 Globulin 3.1 Albumin/Globulin Ratio 1.5 Lipase 66 H Urine Color YELLOW Urine Clarity HAZY Urine pH 5.0 Ur Specific [place] 1.025 Urine Protein TRACE Urine Glucose (UA) NEGATIVE Urine Ketones NEGATIVE Urine Occult Blood NEGATIVE Urine Nitrite NEGATIVE Urine Bilirubin NEGATIVE Urine Urobilinogen 0.2 (NORMAL) Ur Leukocyte Esterase TRACE H Urine RBC 0-5 Urine WBC 6-10 H Ur Squamous Epith Cells MOD Squamous H Urine Bacteria Few Ur Microscopic Review INDICATED Urine Culture Comments NOT INDICATED Urine HCG, Qual NEGATIVE - Rads (name of study) abd/pelvic CT Relevant Findings:: Prelim report reviewed (s/p nephrectomy and kidney trnasplant with puch in right iliac fossa. No acute process seen to account for pain. ), See rad report PD Medical Decision Making - ED course Complexity details: reviewed results, considered differential (hs had pain right flank not improving despite muscle relaxants and tylenol. Is post renal transplant so not supposed to use nsaiDs. Seen at Walk In and then [facility] ER, with Rx for presumed muscular. Patient concerned about more of a process. ), d/w patient Reviewed Lab Results: abd/pelvic ct ordered and evaluated with review of CT report as well. UA reviewed and no signs of infection. CBC and chemistry reviewed and bbaseline creatinine of 1.2 and normal white count. Social Determinants of Health: she has chronic low back pain (current flank pain is new) and is on chronic pain mamagement of bupprenorphine patch 20 mcg/hr and oxycodone 10 mg bid. So for new/added pain, she would need higher dose of meds in order to compensate for the partial agonist and also her developed tolerance. So short term, will add Hydrocodone 10 mg qid prn. To follow up with her pain clinic. also can try decadron steroidal anti-inflammatory to avoid NSAID effect on kidney. ED course: ongoing pain right flank. History of nephrectomy bilaterally due to multiple renal cysts, no cancer. Has renal transplant. so should not be kidney stone or uTI to pain in flank area, but still consider referred pain. Also can consider bony causes or other "tumor" that patient is cocerned about. given ongoing pain, I will get UA/labs and CT scan. She is immunocompromised and occult infections could be serious, etc. retroperitoneal bleed or abscess considered too. However, due to renal transplant, opted for noncontrast CT initially. Departure - Departure Disposition: 01 Home, Self Care Clinical Impression: Acute flank pain, Renal transplant, status post Condition: Stable Record reviewed to determine appropriate education?: Yes Instructions: ED Flank Pain Uncertain Cause Follow-Up: Skyler Mosqueda MD [Primary Care Provider] - Prescriptions: dexAMETHasone [Decadron] 4 mg PO DAILY #5 tablet Cyclobenzaprine [Flexeril] 10 mg PO TID PRN #30 tablet PRN Reason: Spasms Hydrocodone/Acetaminophen [Hydrocodone-Acetamin 10-325 mg] 1 each PO Q6H PRN #20 tablet PRN Reason: Pain 5-7 Comments: Your CT scan did not show any acute abnormality to account for the pain. Your urine test was normal without any signs of infection. Basic blood count is good with a creatinine of 1.2 which is about your baseline. At this point no obvious cause for the back pain. Presume then that its muscular or ligament or such. There was some arthritic changes through the disks in the back but no significant abnormalities. At this point I would have you continue with your current medications for it the lower back pain including the buprenorphine patch and the oxycodone twice daily. In the short-term we can add hydrocodone every 6 hours if needed for pain as well as Decadron steroid anti-inflammatory (avoiding NSAIDs so as to not affect your kidney transplant), and Flexeril muscle relaxant. I sent prescriptions to your preferred pharmacy. Follow-up with your primary care or pain clinic if not improving well over the next several days to week. I am prescribing a short course of narcotic pain medication for you. These are potentially dangerous and addictive medications that should be used carefully. These medications may constipate you. Take an [id number] stool softener such as docusate twice daily with plenty of water while taking these medications. If you go 24 hours without a bowel movement, take [id number] MiraLAX, per package instructions. Do not drink or drive while taking these medications. If you received narcotic or sedating medications while in the emergency depart ment do not drive for 24 hours. Store this medication in a safe, secure place and out of reach of children. It is a violation of federal law to give or sell this medication to another person or to use in a manner other than prescribed. The ED will not refill narcotic prescriptions, including prescriptions lost or stolen. You can dispose of unwanted medications at the [facility]'s office or at several pharmacies such as [facility]. Discharge Date/Time: 01/07/23 18:39
[2023-01-07] MEDS ORDERED: HYDROmorphone 2 MG/ML VIAL IM STA (18:27)
== END 2023-01-07 18:39 | disposition home or self-care (01) ==
LOC: ED 16:22
DX: R10.9 Unspecified abdominal pain (principal); Z94.0 Kidney transplant status
CPT/HCPCS: 36415; 74176; 80053; 81001; 81025; 83690; 85025; 96372; 99284; A9270; J1170; 81003; 87086

== ENCOUNTER 2023-01-13 18:50 | Emergency (ER) | payer MEDICARE, MEDICAID ==
[2023-01-13 18:56] VITALS: BP 130/90
--- OUTSIDE RECORDS SUMMARY | 2023-01-13 18:59 | EXTERNAL MEDICAL SUMMARY RPT | Continuity of Care Document ---
:1970 Author Organization [facility] Address [address] [place] [address] Phone Care Team Providers Name Role Phone Unavailable Unavailable Unavailable Skyler Mosqueda Unavailable Unavailable Aliza Friedman Robert Unavailable Unavailable Allergies and Intolerances date description facility type (no date) No Known Drug Allergies [facility] (unkn own) Encounters No information. Functional Status No information. [...] All 2022-12-24 00:00 oxycodone-acetaminophen All 2022-12-24 00:00 [facility] 2022-12-22 00:00 oxycodone All 2022-12-23 00:00 nitrofurantoin macrocrystal All 2022-12-24 00:00 nitrofurantoin macrocrystal All 2022-12-23 00:00 buprenorphine All 2022-12-24 00:00 buprenorphine All 2022-12-24 00:00 Nitrofurantoin Monohyd/M-Cryst [facility] 2022-12-23 00:00 nitrofurantoin monohyd/m-cryst All 2022-12-24 00:00 nitrofurantoin monohyd/m-cryst All 2022-12-23 00:00 nitrofurantoin macrocrystal All 2022-12-24 00:00 nitrofurantoin macrocrystal All 2022-12-23 00:00 nitrofurantoin macrocrystal All 2022-12-24 00:00 nitrofurantoin macrocrystal All 2022-12-23 00:00 nitrofurantoin monohyd/m-cryst All 2022-12-24 00:00 nitrofurantoin monohyd/m-cryst All 2022-12-23 00:00 prednisone All 2022-12-24 00:00 prednisone All 2022-12-24 00:[address] [facility] 2022-12-23 00:00 amlodipine All 2022-12-24 00:00 amlodipine All 2022-12-24 00:[address] [facility] 2022-12-23 00:00 atenolol All 2022-12-24 00:00 atenolol All 2022-12-24 00:[address] [facility] 2022-12-23 00:00 omeprazole All 2022-12-24 00:00 omeprazole All 2022-12-24 00:[address] [facility] 2022-12-23 00:00 montelukast All 2022-12-24 00:00 montelukast All 2022-12-23 00:00 atenolol All 2022-12-24 00:00 atenolol All 2022-12-23 00:00 prednisone All 2022-12-24 00:00 prednisone All 2022-12-23 00:00 amlodipine All 2022-12-24 00:00 amlodipine All 2022-12-23 00:00 buspirone All 2022-12-24 00:00 buspirone All 2022-12-23 00:00 nitrofurantoin monohyd/m-cryst All 2022-12-24 00:00 nitrofurantoin monohyd/m-cryst All 2022-12-22 00:00 oxycodone All 2022-12-24 00:[address] [facility] 2022-12-23 00:00 citalopram All 2022-12-24 00:00 citalopram All 2022-12-24 00:[address] [facility] 2022-12-23 00:00 gabapentin All 2022-12-24 00:00 gabapentin All 2022-12-24 00:[address] [facility] 2022-12-23 00:00 prednisone All 2022-12-24 00:00 prednisone All 2022-12-24 00:[address] [facility] 2022-12-23 00:00 tacrolimus All 2022-12-24 00:00 tacrolimus [...] nitrofurantoin macrocrystal All 2022-12-24 00:[address] [facility] 2022-12-23 00:00 mycophenolate sodium All 2022-12-24 00:00 [...] All 2022-12-22 00:00 cyclobenzaprine All 2022-12-24 00:00 [facility] 2022-12-22 00:00 cyclobenzaprine All 2022-12-23 00:00 mycophenolate sodium All 2022-12-24 00:00 mycophenolate sodium All 2022-12-23 00:00 buspirone All 2022-12-24 00:00 buspirone All 2022-12-23 00:00 clonidine hcl All 2022-12-24 00:00 clonidine hcl All 2022-12-24 00:[address] [facility] 2022-12-23 00:00 buprenorphine All 2022-12-24 00:00 buprenorphine All 2022-12-23 00:00 mycophenolate sodium All 2022-12-24 00:00 mycophenolate sodium All 2022-12-23 00:00 tacrolimus All 2022-12-24 00:00 tacrolimus All Problems date description facility 2022-12-22 00:00 Thoracic back pain All 2022-12-22 00:00 Backache, unspecified All 2022-12-22 00:00 Dorsalgia, unspecified All 2022-12-24 00:[address] [facility] Procedures date description facility 2022-12-22 00:00 Visit [...] wn) date) unknown) (unknown) (no (unknown) (unknown) [id number] (units (unkno wn) date) unknown) (unknown) (no [...] auscultation unknown) bilaterally (unknown) (no (unknown) (unknown) Skyler Mosqueda MD [...] (unknown) (unknown) : 1970 (units (unknown) date) Acct:[id number] unknown) (unknown) (no (unknown) (unknown) Date of [...] date) sts unknown) (unknown) (no (unknown) (unknown) [facility] (units (unknown) date) [address] unknown) [place] [address] (unknown) (no (unknown) (unknown) Kidney replaced by [...] (unknown) (unknown) Urine Specific (units (unknown) date) [place] 1.015 unknown) (unknown) (no (unknown) (unknown) Vital [...] nknown) date) abdomen. Patient's unknown) saw her flexible machining system machinist 2 weeks ago, states that (unknown) (no [...] (unknown) (unknown) : 1970 (units (unknown) date) Acct:[id number] unknown) (unknown) (no (unknown) (unknown) Date of [...] Muscle Strain unknown) (unknown) (no (unknown) (unknown) Integumentary/Edith (units (unknown) date) sts unknown) (unknown) (no (unknown) (unknown) [facility] (units (unknown) date) [address] unknown) [place] [address] (unknown) (no (unknown) (unknown) Kidney replaced by [...] (unknown) (unknown) Urine Specific (units (unknown) date) [place] 1.015 unknown) (unknown) (no (unknown) (unknown) Vital [...] (units (unkn own) date) follow-up with unknown) OBGYCyn Hartmann as soon as possible. ED return [...] nknown) date) abdomen. Patient's unknown) saw her flexible machining system machinist 2 weeks ago, states that (unknown) (no [...] (units (unknown) date) signed by Geronimo unknown) Shan Schmitz> (unknown) (no (unknown) (unknown) <Nixon Sapp PA-C [...] wn) date) unknown) (unknown) (no (unknown) (unknown) [id number] (units (unkno wn) date) unknown) (unknown) (no [...] (unknown) (unknown) : 1970 (units (unknown) date) Acct:[id number] unknown) (unknown) (no (unknown) (unknown) Date of [...] Muscle Strain unknown) (unknown) (no (unknown) (unknown) Integumentary/Edith (units (unknown) date) sts unknown) (unknown) (no (unknown) (unknown) [facility] (units (unknown) date) [address] unknown) [place] [address] (unknown) (no (unknown) (unknown) Kidney replaced by [...] (unknown) (unknown) Urine Specific (units (unknown) date) [place] 1.015 unknown) (unknown) (no (unknown) (unknown) Vital [...] (units (unkn own) date) follow-up with unknown) RAZA Hartmann as soon as possible. ED return [...] nknown) date) abdomen. Patient's unknown) saw her flexible machining system machinist 2 weeks ago, states that (unknown) (no [...] facility 2022-12-24 00:00 Smokes tobacco daily (finding) [facility] Vital Signs date measurement value units 2022-12-22 [...]
[2023-01-13 20:11] LABS: RAPID STREP SCREEN Negative (Negative)
--- NOTE | 2023-01-13 21:32 | ED Physician Documentation ---
PD HPI HEENT - Stated complaint Stated Complaint: DIFFICULTY SWALLOWING - Chief complaint Chief Complaint: Heent - History obtained from History obtained from: Patient - Additional information Additional information: HPI from patient. Patient c/o sore throat and pain in mouth x few days. She notes white material on roof of mouth and back of throat when she looks in the mirror. Denies h/o similar symptoms. Her medical history includes kidney transplant. Denies fevers. She has not had any decreased PO intake. Review of Systems Constitutional: denies: Fever Throat: reports: Sore throat PD PAST MEDICAL HISTORY - Past Medical History Past Medical History: Yes Cardiovascular: Hypertension GI: Diverticulitis : Other Psych: Depression Musculoskeletal: Chronic back pain - Past Surgical History Past Surgical History: Yes - Present Medications Home Medications: Ambulatory Orders Medication Instructions Recorded Confirmed Buprenorphine [Butrans] 1 each TD 01/13/23 Citalopram Hydrobromide 40 mg PO DAILY 01/13/23 01/13/23 [Citalopram HBr] Gabapentin [Gralise] 600 mg PO QPM 01/13/23 01/13/23 Melatonin 10 mg PO QPM 01/13/23 01/13/23 Montelukast Sodium 10 mg PO QPM 01/13/23 01/13/23 Mycophenolate Sodium [Myfortic] 180 mg PO QPM 01/13/23 01/13/23 Mycophenolate Sodium [Myfortic] 300 mg PO DAILY 01/13/23 01/13/23 Nitrofurantoin [Macrobid] 100 mg PO DAILY 01/13/23 01/13/23 ONDANSETRON ODT Prepack 2 [ZOFRAN 4 mg PO Q8HR PRN 01/13/23 01/13/23 ODT] Omeprazole Magnesium 20 mg PO BID 01/13/23 01/13/23 Oxycodone HCl/Acetaminophen 1 tab PO BID 01/13/23 01/13/23 [Oxycodone-Acetaminophen 10-300] Prednisone [Esa] 5 mg PO DAILY 01/13/23 01/13/23 Tacrolimus 0.5 gm PO BID 01/13/23 01/13/23 amLODIPine [Norvasc] 5 mg PO DAILY 01/13/23 01/13/23 atenoloL [Tenormin] 25 mg PO BID 01/13/23 01/13/23 - Allergies Allergies/Adverse Reactions: Allergies Allergy/AdvReac Type Severity Reaction Status Date / Time No Known Drug Allergies Allergy Verified 01/13/23 18:53 - Social History Does the pt smoke?: No Smoking Status: Never smoker Does the pt drink ETOH?: Yes Does the pt have substance abuse?: No - Immunizations Immunizations are current?: Yes - POLST Patient has POLST: No PD ED PE NORMAL - Vitals Vital signs reviewed: Yes - General General: Alert and oriented X 3, No acute distress, Well developed/nourished - HEENT HEENT: Moist mucous membranes - Neck Neck: Supple, no meningeal sign PD ED PE EXPANDED - HEENT HEENT: Other (upper denture noted. there are diffuse white plaques on the buccal mucuosa, palate, tongue and posterior oropharynx). No: Pharyngeal erythema Results - Vitals Vitals: Oxygen O2 Source Room air - Labs Labs: Microbiology 01/13/23 19:58 Group A Strep Throat Culture - Preliminary Throat CULTURE IN PROGRESS. RESULTS TO FOLLOW. Laboratory Tests 01/13/23 19:58 Group A Strep Rapid Negative PD Medical Decision Making - ED course Complexity details: considered differential, d/w patient ED course: presents with throat pain x few days, says "I think I have thrush" although she says she has not had this before. Her rapid strep swab is negative and exam is c/w thrush. Her PMHx of kidney transplant with associated medications are risk factors for thrush. She is in NAD and says she is tolerating PO well. Given PO nystatin (swish/swallow) in ED and rx for same e-prescribed to her pharmacy of choice. Return precautions d/w patient. Departure - Departure Disposition: 01 Home, Self Care Clinical Impression: Oral thrush Condition: Good Instructions: [place] Infec Thrush Follow-Up: Skyler Mosqueda MD [Primary Care Provider] - (3-5 days if not improving) Comments: Your exam is consistent with thrush. The throat swab was sent for a strep test, and the result was negative for strep throat. A prescription for an antifungal medication for the thrush (nystatin) has been electronically submitted to the [facility] in [place]. Discharge Date/Time: 01/13/23 22:13
[2023-01-13] MEDS ORDERED: NYSTATIN 500000 UNITS/5 ML UDC PO STA (21:43)
== END 2023-01-13 22:13 | disposition home or self-care (01) ==
LOC: ED 18:50
DX: B37.0 Candidal stomatitis (principal); I10 Essential (primary) hypertension
CPT/HCPCS: 87070; 87430; 99283; A9270

== ENCOUNTER 2023-11-11 14:48 | Outpatient (CLI) | payer MEDICARE, MEDICAID ==
--- NOTE | 2023-11-11 17:01 | XRAY Report ---
PROCEDURE: Wrist 3+V RT INDICATIONS: RIGHT WRIST PAIN TECHNIQUE: 3 views of the wrist were acquired. COMPARISON: None. FINDINGS: Bones: No fractures or dislocations. No suspicious bony lesions. Soft tissues: No suspicious soft tissue calcifications or masses. IMPRESSION: No acute bony abnormality. Reviewed by: Kirk Norman MD on 11/11/2023 5:00 PM PST Approved by: Kirk Norman MD on 11/11/2023 5:00 PM [facility] Station ID: [id number]
--- NOTE | 2023-11-11 17:02 | XRAY Report ---
PROCEDURE: Wrist 1-2V RT INDICATIONS: RIGHT WRIST PAIN TECHNIQUE: One views of the wrist were acquired. COMPARISON: None. FINDINGS: Bones: No fractures or dislocations. No suspicious bony lesions. Soft tissues: No suspicious soft tissue calcifications or masses. IMPRESSION: No acute bony abnormality. Reviewed by: Kirk Norman MD on 11/11/2023 5:01 PM PST Approved by: Kirk Norman MD on 11/11/2023 5:01 PM [facility] Station ID: [id number]
== END 2023-11-11 14:49 | disposition home or self-care (01) ==
LOC: DI.N 14:48
PROVIDERS: ATTEND Physician Assistant Medical
DX: M25.531 Pain in right wrist (principal)

== ENCOUNTER 2024-02-19 05:14 | Outpatient (CLI) | payer MEDICARE, MEDICAID | END 2024-02-19 23:28 | disposition critical access hospital (66) | LOC: EMS 05:14 | DX: R10.84 Generalized abdominal pain (principal); R10.829 Rebound abdominal tenderness, unspecified site | CPT/HCPCS: A0425; A0427 ==

== ENCOUNTER 2024-02-19 05:36 | Emergency (ER) | payer MEDICARE, MEDICAID ==
--- NOTE | 2024-02-19 06:02 | ED Physician Documentation ---
PD HPI ABD PAIN - Stated complaint Stated Complaint: ABD PX - Chief complaint Chief Complaint: Abd Pain - History obtained from History obtained from: Patient, Family - Additional information Additional information: The patient comes to the emergency department chief complaint of epigastric pain that started around 1:00 this morning. She states it woke her up from sleep. It feels a lot like when she had an ulcer many years ago, she states. She has not been having episodes of pain leading up to this, and states she has not had an endoscopy in a very long time. The patient has had some nausea. No vomiting. She has a history of a renal transplant, due to polycystic kidney disease and renal failure. Her transplant was about 6 years ago and she states it has been going well. 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 The patient's daughter states she also had an incisional hernia repair. No other complaints at this time. PD PAST MEDICAL HISTORY - Past Medical History Past Medical History: Yes Cardiovascular: Hypertension GI: Ulcers, Diverticulitis : Other Psych: Depression Musculoskeletal: Chronic back pain - Past Surgical History Past Surgical History: Yes - Present Medications Home Medications: Ambulatory Orders Medication Instructions Recorded Confirmed Buprenorphine [Butrans] 1 each TD UD 01/13/23 02/19/24 Gabapentin [Gralise] 600 mg PO QPM 01/13/23 02/19/24 Melatonin 10 mg PO QPM 01/13/23 01/13/23 Montelukast Sodium 10 mg PO QPM 01/13/23 02/19/24 Mycophenolate Sodium [Myfortic] 180 mg PO BID 01/13/23 01/13/23 Omeprazole Magnesium 20 mg PO BID 01/13/23 02/19/24 Prednisone [Esa] 5 mg PO DAILY 01/13/23 02/19/24 Tacrolimus 1 mg PO BID 01/13/23 02/19/24 amLODIPine [Norvasc] 5 mg PO DAILY 01/13/23 02/19/24 atenoloL [Tenormin] 25 mg PO BID 01/13/23 02/19/24 Azelastine HCl [Astepro Allergy] 2 spr YARELY BID 02/19/24 02/19/24 DULoxetine [Cymbalta] 30 mg PO DAILY 02/19/24 02/19/24 Nitrofurantoin Monohyd/M-Cryst 100 mg PO DAILY 02/19/24 02/19/24 [Nitrofurantoin Letcher-Mcr 100 mg] Sertraline HCl 100 mg PO DAILY 02/19/24 02/19/24 - Allergies Allergies/Adverse Reactions: Allergies Allergy/AdvReac Type Severity Reaction Status Date / Time No Known Drug Allergies Allergy Verified 02/19/24 05:54 - Social History Does the pt smoke?: No Smoking Status: Never smoker Does the pt drink ETOH?: Yes Does the pt have substance abuse?: No - Immunizations Immunizations are current?: Yes - POLST Patient has POLST: No PD ED PE NORMAL - Vitals Vital signs reviewed: Yes - General General: Alert and oriented X 3, No acute distress, Well developed/nourished - HEENT HEENT: Atraumatic, PERRL, EOMI, Moist mucous membranes - Neck Neck: Supple, no meningeal sign - Cardiac Cardiac: RRR, No murmur - Respiratory Respiratory: No respiratory distress, Clear bilaterally - Abdomen Abdomen: Soft, Non tender, Non distended - Derm Derm: Normal color, Warm and dry, No rash - Extremities Extremities: No deformity - Neuro Neuro: Alert and oriented X 3 - Psych Psych: Normal mood, Normal affect Results - Vitals Vitals: Vital Signs - 24 hr 02/19/24 05:46 Temperature 36.6 C Heart Rate 78 Respiratory 18 Rate Blood Pressure 145/102 H O2 Saturation 96 Oxygen O2 Source Room air - Labs Labs: Laboratory Tests 02/19/24 02/19/24 05:45 05:45 WBC 12.7 H RBC 5.55 H Hgb 16.2 H Hct 49.4 H MCV 89.0 MCH 29.2 MCHC 32.8 RDW 14.0 Plt Count 165 MPV 10.3 Neut # (Auto) 10.8 H Lymph # (Auto) 1.2 L Letcher # (Auto) 0.6 Eos # (Auto) 0.0 Baso # (Auto) 0.0 Absolute Nucleated RBC 0.00 Nucleated RBC % 0.0 Sodium 139 Potassium 4.8 H Chloride 103 Carbon Dioxide 26 Anion Gap 10.0 BUN 21 H Creatinine 1.4 H Estimated GFR (MDRD) 39 L Glucose 155 H Calcium 11.5 H Total Bilirubin 0.7 AST 28 ALT 19 Alkaline Phosphatase 89 Total Protein 7.6 Albumin 4.9 Globulin 2.7 Albumin/Globulin Ratio 1.8 Lipase 121 H PD Medical Decision Making - ED course Complexity details: reviewed results, re-evaluated patient, considered differential, d/w patient, d/w family ED course: The patient was extremely difficult vascular access and as such, while blood was able to be drawn, IV was not able to be placed. Patient was given IM Dilaudid and ODT Zofran after which she did report feeling better. Her labs showed mildly elevated white blood cell count and mildly elevated lipase. Given her upper abdominal pain, white count, and lipase I feel she should have a CT scan. Also, and she is a kidney transplant patient, we will evaluate her CT for the wellbeing of her transplanted kidneys, as well. Patient is signed out to Dr. Carranza at change of shift, pending CT results and final disposition. Departure - Departure Clinical Impression: Abdominal pain Qualifiers: Abdominal location: upper abdomen, unspecified Qualified Code(s): R10.10 - Upper abdominal pain, unspecified Pancreatitis Qualifiers: Chronicity: acute Pancreatitis type: unspecified pancreatitis type Acute pancreatitis complication: no infection or necrosis Qualified Code(s): K85.90 - Acute pancreatitis without necrosis or infection, unspecified Condition: Stable Forms: PCP List
[2024-02-19 06:07] LABS: BASOPHILS % (AUTO) 0.3 %; EOSINOPHILS % (AUTO) 0.3 %; HCT - HEMATOCRIT 49.4 % (37.0-47.0); HGB - HEMOGLOBIN 16.2 g/dL (12.0-16.0); LYMPHOCYTES # (AUTO) 1.2 10^3/uL (1.5-3.5); LYMPHOCYTES % (AUTO) 9.1 %; MEAN CORPUSCULAR HEMOGLOBIN 29.2 pg (27.0-31.0); MEAN CORPUSCULAR HGB CONC 32.8 g/dL (32.0-36.0); MEAN PLATELET VOLUME 10.3 fL (7.9-10.8); MONOCYTES # (AUTO) 0.6 10^3/uL (0.0-1.0); MONOCYTES % (AUTO) 4.9 %; NEUTROPHILS # (AUTO) 10.8 10^3/uL (1.5-6.6); NEUTROPHILS % (AUTO) 84.8 %; PLT - PLATELET COUNT 165 10^3/uL (130-450); RED BLOOD COUNT 5.55 10^6/uL (4.20-5.40); WHITE BLOOD COUNT 12.7 x10^3/uL (4.8-10.8)
[2024-02-19] MEDS: ONDANSETRON 4 MG/2 ML VIAL IVP STA (06:16)
[2024-02-19 06:17] LABS: ALBUMIN 4.9 g/dL (3.2-5.5); ALBUMIN/GLOBULIN RATIO 1.8 (1.0-2.2); BILIRUBIN,TOTAL 0.7 mg/dL (0.2-1.0); CALCIUM 11.5 mg/dL (8.5-10.3); CREATININE 1.4 mg/dL (0.6-1.3); POTASSIUM 4.8 mmol/L (3.5-4.5); TOTAL PROTEIN 7.6 g/dL (6.4-8.9)
[2024-02-19] MEDS: HYDROmorphone 1 MG/ML CARPUJECT IM STA (06:20)
[2024-02-19] MEDS: ONDANSETRON ODT 4 MG TABLET TL STA (06:20)
[2024-02-19] MEDS: SODIUM CHLORIDE 0.9% 1,000 ML IV STA (06:30)
[2024-02-19] MEDS: DROPERIDOL 5 MG/2 ML VIAL IM STA (07:58)
--- NOTE | 2024-02-19 07:58 | CT Report ---
PROCEDURE: Abdomen/Pelvis WO INDICATIONS: epigastric pn, elev lipase, kidney transplant TECHNIQUE: A CT scan of the abdomen and pelvis was performed without the use of intravenous contrast. Images we re recorded and evaluated at appropriate window settings. Reformats: coronal and sagittal. For radiat ion dose reduction, the following was used: automated exposure control, adjustment of mA and/or kV ac cording to patient size. COMPARISON: 01/07/2023 FINDINGS: Image quality: Diagnostic Lower chest: Scattered scarring and atelectasis. Suspected coronary and annular calcifications of the heart. Liver: Numerous hepatic cysts. Subcentimeter lesions are too small to characterize, usually also cyst s. Solid organs are not well evaluated the absence of intravenous contrast. There are some cysts with ca lcifications, and possible also calcified granulomas. Gallbladder and biliary system: Unremarkable, nondilated Pancreas: No ductal dilation or significant inflammation by imaging Spleen: Nonenlarged Adrenals: No discrete nodules Kidneys: Bilateral nephrectomy. Right lower quadrant renal transplant appears unremarkable noncontras t evaluation Vessels and lymph nodes: Atherosclerotic calcifications. No abdominal aortic aneurysm. No pathologic lymph nodes by size criteria. Bowel and peritoneum: Mild to moderate gastric distention. Moderate dilation of small bowel loops, wi th transition to undistended bowel in the right lower quadrant/right pelvis (2/131). No evidence of pathologic ascites or drainable abscess. There are colonic diverticula. Body wall: Postsurgical changes in the anterior abdominal wall Pelvis: Bladder is unremarkable. Reproductive organs are unremarkable on limited CT evaluation There is a small partially calcified structure at the peritoneal reflection, that may represent seque lae of prior epiploic appendagitis versus torsed fibroid. Bones: Scattered degenerative changes. Irregularity of the sacroiliac joints. IMPRESSION: Small bowel obstruction. Transition to undistended bowel is seen in the right pelvis. No abscess or d rainable ascites. Other findings as above. Limited noncontrast CT. Reviewed by: Wale Putnam MD on 02/19/2024 7:57 AM PDT Approved by: Wale Putnam MD on 02/19/2024 7:57 AM PDT Station ID: [id number]
--- NOTE | 2024-02-19 09:17 | ED Physician Documentation ---
ED Addendum - Addendum Addendum: 02/19/24 09:14 The patient is feeling well and better improved regarding pain and nausea after medications here. Her labs are showing slight increase over baseline of her renal function. She states baseline 1.2. Currently 1.4. White count is elevated. H&H is okay. She has a minimal elevation of lipase. She had gone down for CT scan without contrast due to lack of IV access and without contrast seemed adequate for diagnostic. This CT report comes back showing apparent small bowel obstruction with transition of the distal small bowel. I reexamined the patient and she is having no feeling of distention at this time. She has been having bowel movements the last couple of days. No constipation. She had not had one yet today. She has been feeling nauseous but no vomiting. She was given some Inapsine as well IM with improvement in the nausea. At this point she is not feeling nauseous and does not have any abdominal pain. Palpation of the abdomen does not have any tenderness. Bowel sounds are present and slightly hyperactive. She has not had any viral illness or cold or flu symptoms. At this point going with the CT findings, suggestive of partial small bowel obstruction that is resolving based on symptoms. However at this point I would want to give a little bit more time to see. Her preference would be to go home if she is possible. We will try sips of water and fluids. Given the improvement in her symptoms, I do not feel we need to press for central line or other IV access. However I would want to give another hour or 2 to see how her symptoms are continuing to be abated and how she does with the small amounts of fluid intake. If she is doing well with these and her symptoms are improved, then home with liquid diet for a day or 2 may be appropriate. I can talk with her transplant team before the discharge for follow-up if that is the case.
[2024-02-19 12:55] VITALS: O2SAT 98
[2024-02-19 13:00] LABS: BILIRUBIN,URINE NEGATIVE (NEGATIVE); GLUCOSE, URINE (UA) NEGATIVE (NEGATIVE); KETONES,URINE (UA) NEGATIVE (NEGATIVE); LEUKOCYTE ESTERASE, URINE NEGATIVE (NEGATIVE); NITRITE,URINE NEGATIVE (NEGATIVE); OCCULT BLOOD,URINE NEGATIVE (NEGATIVE); PH,URINE 5.5 PH (5.0-7.5); PROTEIN,URINE NEGATIVE (NEGATIVE); UROBILINOGEN,URINE 0.2 (NORMAL) E.U./dL (NORMAL)
[2024-02-19 13:02] LABS: CLARITY,URINE CLEAR (CLEAR)
[2024-02-19 13:24] VITALS: BP 146/84
== END 2024-02-19 13:00 | disposition home or self-care (01) ==
LOC: EDUNIT# → ED 05:36
DX: K56.600 Partial intestinal obstruction, unspecified as to cause (principal); K85.90 Acute pancreatitis without necrosis or infection, unspecified; Z09 Encounter for follow-up examination after completed treatment for conditions other than malignant neoplasm; Z94.0 Kidney transplant status; Z87.448 Personal history of other diseases of urinary system
CPT/HCPCS: 36415; 74176; 80053; 81003; 83690; 85025; 96372; 96374; 99283; 99284; J1170; Q0162; 81001; 87086

== ENCOUNTER 2024-05-17 12:47 | Emergency (ER) | payer MEDICARE, MEDICAID ==
--- NOTE | 2024-05-17 13:18 | ED Physician Documentation ---
History of Present Illness - Stated complaint Stated Complaint: SWOLLEN LT NECK - Chief complaint Chief Complaint: Heent - History obtained from History obtained from: Patient - History of Present Illness Timing: Prior to arrival Pain level max: 0 Pain level now: 0 - Additonal information Additional information: Patient is a 53-year-old female presenting to the emergency department with swelling left neck. Patient notes symptoms started about 1 week ago on Saturday she went to urgent care and was given prescription for antibiotics she is taking about 3 doses of Augmentin with no improvement. Patient notes that has gotten much bigger. She denies any history of cancer or lymphadenopathy. She has history remarkable for kidney transplant. She has been compliant with tacrolimus mycophenolate and steroids daily. Patient notes no significant pain or significant sore throat shortness of breath or difficulty handling secretions associated with left neck swelling. She does report jaw pain and mild trismus with her symptoms. No radiation of pain to her ear or back of her neck. She does have persistent headache with symptoms. She notes it has not spread she does have history remarkable for smoking for about 5 years while vaping. PD PAST MEDICAL HISTORY - Past Medical History Cardiovascular: Hypertension GI: Ulcers, Diverticulitis : Other Psych: Depression Musculoskeletal: Chronic back pain Other Past Medical History: kidney tranplant - Past Surgical History Past Surgical History: Yes - Present Medications Home Medications: Ambulatory Orders Medication Instructions Recorded Confirmed Buprenorphine [Butrans] 1 each TD UD 01/13/23 05/17/24 Gabapentin [Gralise] 600 mg PO QPM 01/13/23 05/17/24 Melatonin 10 mg PO QPM 01/13/23 05/17/24 Montelukast Sodium 10 mg PO QPM 01/13/23 05/17/24 Mycophenolate Sodium [Myfortic] 180 mg PO BID 01/13/23 05/17/24 Omeprazole Magnesium 20 mg PO BID 01/13/23 05/17/24 Prednisone [Esa] 5 mg PO DAILY 01/13/23 05/17/24 Tacrolimus 1 mg PO BID 01/13/23 05/17/24 amLODIPine [Norvasc] 5 mg PO DAILY 01/13/23 05/17/24 atenoloL [Tenormin] 25 mg PO BID 01/13/23 05/17/24 Azelastine HCl [Astepro Allergy] 2 spr YARELY BID 02/19/24 05/17/24 DULoxetine [Cymbalta] 30 mg PO DAILY 02/19/24 05/17/24 Nitrofurantoin Monohyd/M-Cryst 100 mg PO DAILY 02/19/24 05/17/24 [Nitrofurantoin Alfalfa-Mcr 100 mg] Ondansetron HCl 4 mg PO Q6HR PRN 05/17/24 05/17/24 Oxycodone HCl/Acetaminophen 1 each PO DAILY 05/17/24 05/17/24 [Percocet 10-325 mg Tablet] Triamcinolone 0.1% Cream [Kenalog 1 applic TOP BID 05/17/24 05/17/24 0.1% Cream] - Allergies Allergies/Adverse Reactions: Allergies Allergy/AdvReac Type Severity Reaction Status Date / Time No Known Drug Allergies Allergy Verified 05/17/24 12:57 - Social History Does the pt smoke?: No Smoking Status: Never smoker Does the pt drink ETOH?: Yes Does the pt have substance abuse?: No - Immunizations Immunizations are current?: Yes - POLST Patient has POLST: No PD ED PE NORMAL - Vitals Vital signs reviewed: Yes - General General: Alert and oriented X 3 - HEENT HEENT: Atraumatic - Neck Neck: Other (Large palpable mass approximately 3 cm in length to left side of the neck with no significant erythema or fluctuance around the area. Tenderness noted on examination. Nonmobile palpation to mass. No other significant lymphadenopathy noted. Full range of motion of neck. Oropharynx appears clear ) - Respiratory Respiratory: No respiratory distress, Clear bilaterally - Abdomen Abdomen: Normal bowel sounds - Derm Derm: Normal color, No rash - Neuro Neuro: Alert and oriented X 3 - Psych Psych: Normal mood Results - Vitals Vitals: Vital Signs - 24 hr 05/17/24 05/17/24 12:57 15:00 Temperature 36.7 C Heart Rate 85 64 Respiratory 16 16 Rate Blood Pressure 113/84 H 119/86 H O2 Saturation 99 97 Oxygen O2 Source Room air - Labs Labs: Laboratory Tests 05/17/24 05/17/24 14:58 14:58 WBC 9.0 RBC 4.39 Hgb 12.7 Hct 40.5 MCV 92.3 MCH 28.9 MCHC 31.4 L RDW 13.8 Plt Count 144 MPV 9.4 Neut # (Auto) 7.9 H Lymph # (Auto) 0.6 L Alfalfa # (Auto) 0.5 Eos # (Auto) 0.0 Baso # (Auto) 0.0 Absolute Nucleated RBC 0.00 Nucleated RBC % 0.0 Sodium 139 Potassium 3.8 Chloride 105 Carbon Dioxide 25 Anion Gap 9.0 BUN 12 Creatinine 1.2 Estimated GFR (MDRD) 47 L Glucose 118 H Calcium 9.8 Total Bilirubin 0.6 AST 10 ALT 11 Alkaline Phosphatase 75 Total Protein 6.6 Albumin 4.0 Globulin 2.6 Albumin/Globulin Ratio 1.5 PD Medical Decision Making - ED course ED course: Patient is a 53-year-old female presenting to the emergency department with past medical history remarkable for kidney transplant multiple years ago. Patient has some left neck swelling. She notes symptoms started few days ago. She was seen at her PCP office and was started on antibiotics. Patient has taken about 3 doses of these but has persistent swelling and pain. She denies any difficulty swallowing no sore throat no runny nose no cough. She denies any significant pain redness over the area full range of motion of neck. She denies any shortness of breath associated with symptoms. No previous history of cancer. Vitals on arrival are reassuring patient is afebrile nontachycardic normotensive saturating well on room air. Oropharynx appears clear bilateral TMs clear bilaterally no other palpable lymphadenopathy noted however palpable mass approximately 4 to 5 cm in size to left jaw with tenderness on light touch no surrounding erythema no fluctuance to area. Labs obtained here in the emergency department prior to CT scan of soft tissues of neck showed no significant leukocytosis hemoglobin is stable CMP does show chronic CKD but no significant HUY GFR is greater than 40. Patient will have CT scan obtained of neck to further evaluate mass. CT scan of the neck shows inflammatory changes involving asymmetrically enlarged left parotid gland which corresponds to patient's reported area of swelling suggestive of left parotiditis. Underlying neoplastic process cannot be entirely excluded. Clinical and imaging follow-up until resolution is recommended. Discussed with patient reassuring findings she can continue on antibiotics given by urgent care however low suspicion for bacterial parotitis. Most likely viral. Instructed patient to drink lots of fluids she can put compress on and no significant swelling or pain on examination. Instructed patient given concerning mass findings and have follow-up with PCP in a week for reevaluation he may require further biopsy if does not resolve on its own. Watch for any difficulty swallowing increasing size increased pain redness over the area or fluctuance. Patient understands and is agreeable with this plan. Departure - Departure Disposition: 01 Home, Self Care Clinical Impression: Parotitis, acute, Mass in neck Condition: Good Follow-Up: Skyler Mosqueda MD [Primary Care Provider] - Comments: You were seen here in the emergency department for your symptoms of left neck swelling. Your workup here showed acute parotitis this is inflammation of your parotid gland. I have instructed you to continue with antibiotics however low suspicion for bacterial parotitis. You should drink lots of fluids you can put warm compress on the area to help with inflammation and continue with home steroids. Return to the emergency department with any worsening pain fevers difficulty swallowing handling secretions. If your swelling persists you may need further imaging versus biopsy of mass. Follow-up with your PCP for persistent symptoms. Forms: PCP List
[2024-05-17 15:05] LABS: BASOPHILS % (AUTO) 0.2 %; EOSINOPHILS % (AUTO) 0.1 %; HCT - HEMATOCRIT 40.5 % (37.0-47.0); HGB - HEMOGLOBIN 12.7 g/dL (12.0-16.0); LYMPHOCYTES # (AUTO) 0.6 10^3/uL (1.5-3.5); LYMPHOCYTES % (AUTO) 6.1 %; MEAN CORPUSCULAR HEMOGLOBIN 28.9 pg (27.0-31.0); MEAN CORPUSCULAR HGB CONC 31.4 g/dL (32.0-36.0); MEAN CORPUSCULAR VOLUME 92.3 fL (81.0-99.0); MEAN PLATELET VOLUME 9.4 fL (7.9-10.8); MONOCYTES # (AUTO) 0.5 10^3/uL (0.0-1.0); MONOCYTES % (AUTO) 5.3 %; NEUTROPHILS # (AUTO) 7.9 10^3/uL (1.5-6.6); NEUTROPHILS % (AUTO) 87.9 %; PLT - PLATELET COUNT 144 10^3/uL (130-450); RED BLOOD COUNT 4.39 10^6/uL (4.20-5.40); RED CELL DISTRIBUTION WIDTH 13.8 % (12.0-15.0)
[2024-05-17 15:17] LABS: ALBUMIN/GLOBULIN RATIO 1.5 (1.0-2.2); BILIRUBIN,TOTAL 0.6 mg/dL (0.2-1.0); CALCIUM 9.8 mg/dL (8.5-10.3); CREATININE 1.2 mg/dL (0.6-1.3); POTASSIUM 3.8 mmol/L (3.5-4.5); TOTAL PROTEIN 6.6 g/dL (6.4-8.9)
[2024-05-17] MEDS ORDERED: iohexoL-300 100 ML VIAL ONE (15:47)
--- NOTE | 2024-05-17 16:31 | CT Report ---
PROCEDURE: Soft Tissue Neck W INDICATIONS: enlarged lymph node > 3 cm CONTRAST: 100ml omni 300 TECHNIQUE: After the administration of intravenous contrast, 3.0 mm axial sections acquired from the sella to th e aortic arch. Additional oblique axial 3.0 mm sections acquired through the pharynx. 3 mm thick co rachelle reformats were generated. For radiation dose reduction, the following was used: automated exp osure control, adjustment of mA and/or kV according to patient size. COMPARISON: None. FINDINGS: Image quality: Excellent. Lymph nodes: No enlarged lymph nodes seen throughout the neck. Vessels: Visualized vasculature appears patent. Neck spaces: The oropharynx, nasopharynx, and pharynx demonstrate no mucosal lesions. The vocal cor ds, false vocal cords, pyriform sinuses, epiglottis, vallecula, and tongue base all appear normal. E xtramucosal spaces appear unremarkable. Glands: Asymmetrically enlarged left parotid gland is seen with heterogeneous area of enhancement and surrounding subcutaneous fat stranding. The right parotid and bilateral submandibular glands appear normal. The thyroid is normal in size and there are no incidental findings. Miscellaneous: Visualized brain and orbits appear normal. Lung apices appear clear. Superficial so ft tissues appear normal. Bones: No suspicious bony lesions. Visualized sinuses and mastoids appear unremarkable. IMPRESSION: 1. Inflammatory changes involving asymmetrically enlarged left parotid gland which corresponds to pat candi's reported area of swelling suggestive of left parotiditis. Underlying neoplastic process cannot be entirely excluded. Clinical and imaging follow-up until resolution is recommended. 2. No discrete drainable abscess collection. No abnormally enlarged lymph nodes are seen in the neck soft tissue. Airway is patent. Bilateral paranasal sinuses are well aerated. CLINICAL RECOMMENDATION STATEMENTS: In patients <35 years with an ITN detected on CT, MRI, or extrathyroidal ultrasound, the Committee re commends further evaluation with dedicated thyroid ultrasound if the nodule is "e1 cm and has no susp icious imaging features, and if the patient has normal life expectancy. In patients "e35 years with an ITN detected on CT, MRI, or extrathyroidal ultrasound, the Committee r ecommends further evaluation with dedicated thyroid ultrasound if the nodule is "e1.5 cm and has no s uspicious imaging features, and if the patient has normal life expectancy. (ACR, 2014) Reviewed by: Jorgito Lu MD on 05/17/2024 4:30 PM PDT Approved by: Jorgito Lu MD on 05/17/2024 4:30 PM PDT Station ID: [id number]
[2024-05-17 17:59] VITALS: BP 120/83; O2SAT 99
== END 2024-05-17 17:51 | disposition home or self-care (01) ==
LOC: ED 12:47
DX: K11.21 Acute sialoadenitis (principal); Z94.0 Kidney transplant status; I10 Essential (primary) hypertension; F32.A Depression, unspecified
CPT/HCPCS: 36415; 70491; 80053; 85025; 99283; 99284; Q9967